=== PATIENT | female | born 1950 | race Two or more races ===

== ENCOUNTER 2019-11-11 20:42 | Emergency (ER) | payer SELFPAY ==
[~2019-11-11] VITALS: Ht 165.1 cm; Wt 76.7 kg
[2019-11-11] MEDS ORDERED: ASPIRIN 325 MG TAB PO ONE (21:30)
--- OUTSIDE RECORDS SUMMARY | 2019-11-11 22:32 | XMS REPORT | Continuity of Care Document ---
Author Author [facility] Address Unknown Phone Unavailable Care Team Providers Care [employer] Helper Name Role Phone [place] Information [email or web address] Unavailable Un available Problems Problem Status Onset Date Classification Date Reported Comments Source COLON SCREENING Active 06/01/2019 [facility] Medications No Data Provided for This Section Allergies, Adverse Reactions, Alerts No Known Medication Allergies Immunizations No Data Provided for This Section Results No Data Provided for This Section Pathology Reports No Data Provided for This Section Diagnostic Reports No Data Provided for This Section Consultation Notes No Data Provided for This Section Discharge Summaries No Data Provided for This Section History and Physicals No Data Provided for This Section Vital Signs No Data Provided for This Section Encounters Location Location Details Encounter Type Encounter Number Reason For Visit Attending Provider ADM Date DC Date Status Source [facility] Bedded Outpatient [id number] Dariel Menjivar 06/13/2019 06/13/2019 [facility] Procedures No Data Provided for This Section Assessment and Plan No Data Provided for This Section Plan of Care No Data Provided for This Section Social History Social History Date Source Social History TypeResponse 06/13/2019 [facility] Family History No Data Provided for This Section Advance Directives No Data Provided for This Section Functional Status No Data Provided for This Section
--- OUTSIDE RECORDS SUMMARY | 2019-11-11 22:32 | XMS REPORT | Clinical Summary ---
Author Author [facility] Organization [facility] Address Unknown Phone Unavailable Care Team Providers Care Rug Repairer Name Role Phone Patrice Renteria MD PCP Karen Norman RN 2 Unavailable Allergies Comments Active Allergy Reactions Severity Noted Date Had erythema at the site of the injection and a large urticaria at the anterior and medial bicep. Pneumococcal 23-Elise Ps Medium 01/19/2019 Vaccine Medications End Date Status Medication Sig Dispensed Refills Start Date Active aspirin (ASPIRIN) 81 mg Chew and 0 chewable tablet swallow 81 mg by mouth daily. Active levothyroxine (SYNTHROID) Take 1 tablet 90 tablet 3 75 mcg tabletIndications: by mouth 0 Acquired hypothyroidism daily. Active cloNIDine HCL (CATAPRES) Take 1 tablet 180 tablet 3 0.1 mg tabletIndications: by mouth 2 0 Benign essential HTN times daily. Active atorvastatin (LIPITOR) 20 Take 1 tablet 90 tablet 3 mg tabletIndications: by mouth at 0 Mixed hyperlipidemia bedtime nightly. Active amLODIPine (NORVASC) 5 mg Take 1 tablet 90 tablet 3 tabletIndications: Benign by mouth 0 essential HTN every morning. Active ketoconazole (NIZORAL) 2 Apply a small 30 g 0 % topical amount to red 0 creamIndications: areas under Intertrigo breast twice a day for one week.. Additional Information Patient not taking. Reported on 11/10/2019 2:08 PM Active polyethylene glycol Add lukewarm 4000 mL 0 07/12 (GOLYTELY) 236-22.74-6.74 drinking 0 -5.86 gram oral water to the solutionIndications: fill yenny (4 Abdominal pain, liters) and unspecified abdominal shake. Drink location as directed by your doctor.. Additional Information Patient not taking. Reported on 11/10/2019 2:08 PM Active LORazepam (ATIVAN) 0.5 mg Take 0.5 mg 0 tablet by mouth every 6 hours as needed for Anxiety (sleep) pt got RX from a private MD- no one in [facility] . Active hydroCHLOROthiazide Take 1 tablet 90 tablet 1 08/12 (HYDRODIURIL) 25 mg by mouth 0 tabletIndications: daily. Essential hypertension Active cetirizine (ZYRTEC) 10 mg Take 1 tablet 30 tablet 1 tabletIndications: by mouth 0 Shortness of breath daily. Active Comp by 1 Units 0 Stocking,Knee,Regular,Med Misc.(Non-Efraín 0 MiscIndications: g; Combo Localized swelling of Route) route. right lower extremity Active mometasone (NASONEX) 50 1 [place] by 17 g 1 mcg/actuation nasal each nostril 0 sprayIndications: route daily. Shortness of breath 02/11/2019 Discontinued (Reorder) levothyroxine (SYNTHROID) Take 1 tablet 90 tablet 2 75 mcg tabletIndications: by mouth 9 Acquired hypothyroidism daily. 11/23/2018 Discontinued (Other) cloNIDine HCl (CATAPRES) Take 1 tablet 180 tablet 2 0.1 mg tabletIndications: by mouth 2 9 Medication refill times daily. 01/18/2019 Discontinued amLODIPine (NORVASC) 5 mg Take 1 tablet 90 tablet 2 tabletIndications: by mouth 9 Medication refill every morning. 02/11/2019 Discontinued (Reorder) atorvastatin (LIPITOR) 10 Take 1 tablet 90 tablet 2 mg tabletIndications: by mouth at 9 Mixed hyperlipidemia bedtime nightly. 04/26/2019 Discontinued (Patient Discha rge) fluticasone propionate Use 2 Sprays 16 g 11 (FLONASE ALLERGY RELIEF) in each 9 50 mcg/actuation nasal nostril sprayIndications: daily. Dysfunction of both eustachian tubes 12/13/2018 famotidine (PEPCID) 40 mg Take 1 tablet 30 tablet 0 tabletIndications: by mouth 9 Epigastric abdominal pain daily for 30 days. 01/19/2019 Discontinued (Reorder) famotidine (PEPCID) 20 mg Take 1 tablet 90 tablet 1 tabletIndications: by mouth 2 9 Gastroesophageal reflux times daily disease, esophagitis as needed for presence not specified Heartburn. 01/19/2019 Discontinued (Reorder) amLODIPine (NORVASC) 10 Take 1 tablet 90 tablet 1 mg tabletIndications: by mouth 9 Medication refill, Benign every essential HTN morning. 04/26/2019 Discontinued (Patient Dischfarideh rgtoñito) cetirizine (ZYRTEC) 10 mg Take 1 tablet 30 tablet 3 tabletIndications: by mouth 9 Adverse effect of daily. vaccine, initial encounter 04/26/2019 Discontinued (Patient Dischfarideh herring) famotidine (PEPCID) 20 mg Take 1 tablet 90 tablet 1 tabletIndications: by mouth 2 9 Gastroesophageal reflux times daily disease, esophagitis as needed for presence not specified Heartburn. 04/26/2019 Discontinued (Reorder) amLODIPine (NORVASC) 10 Take 1 tablet 90 tablet 1 mg tabletIndications: by mouth 9 Medication refill, Benign every essential HTN morning. 07/04/2019 Discontinued (Reorder) levothyroxine (SYNTHROID) Take 1 tablet 90 tablet 2 75 mcg tabletIndications: by mouth 9 Acquired hypothyroidism daily. 04/26/2019 Discontinued atorvastatin (LIPITOR) 10 Take 1 tablet 90 tablet 2 mg tabletIndications: by mouth at 9 Mixed hyperlipidemia bedtime nightly. 09/09/2019 Discontinued (Therapy comple taylor) dexlansoprazole Take 1 60 capsule 3 (DEXILANT) 30 mg delayed capsule by 9 release mouth daily. capsuleIndications: Gastroesophageal reflux disease, esophagitis presence not specified 07/04/2019 Discontinued (Reorder) atorvastatin (LIPITOR) 20 Take 1 tablet 90 tablet 2 mg tabletIndications: by mouth at 0 Mixed hyperlipidemia bedtime nightly. 07/04/2019 Discontinued (Reorder) cloNIDine HCL (CATAPRES) Take 1 tablet 180 tablet 1 0.1 mg tabletIndications: by mouth 2 0 Benign essential HTN times daily. 07/04/2019 Discontinued (Reorder) amLODIPine (NORVASC) 5 mg Take 1 tablet 90 tablet 2 tabletIndications: Benign by mouth 0 essential HTN every morning. 05/16/2019 ciprofloxacin HCl (CIPRO) Take 1.5 30 tablet 0 500 mg tabletIndications: tablets by 0 Fever, unspecified fever mouth 2 times cause, Enterocolitis daily for 10 days. 05/16/2019 metroNIDAZOLE (FLAGYL) Take 1 tablet 20 tablet 0 0 500 mg tabletIndications: by mouth 2 0 Fever, unspecified fever times daily cause, Enterocolitis for 10 days. 05/11/2019 ondansetron (ZOFRAN) 4 mg Take 1 tablet 8 tablet 0 tabletIndications: by mouth 0 Epigastric abdominal pain every 8 hours as needed for up to 3 days for Nausea. Active Problems Problem Noted Date Epigastric abdominal pain 01/08/2018 Acute superficial gastritis without hemorrhage 01/08 Essential hypertension Hyperlipidemia Neck pain on left side Resolved Problems Problem Noted Date Resolved Date Other chest pain 01/22/2018 09/09/2019 Medication refill 01/22/2018 09/09/2019 Nonintractable headache 09/09/2019 Fever 09/09/2019 Encounters Care Team Description Date Type Specialty Chaz Villalobos ResidentMD Khan, Shamis, ResidentMD Shortness of breath (Primary Dx); Localized swelling of right lower extremity 11/10/2019 Office Visit Internal Medicine Augusta Whitley ResidentMD Shortness of breath 11/10/2019 Orders Only Internal Medicine Violeta Pisano MD Occult blood positive stool 11/09/2019 Orders Only Internal Medicine Lydia Hauser Anxiety disorder, unspecified type (Prim elaine Dx) 10/12/2019 Telephonic Psychology Encounter Patrice Renteria MD Encounter for screening mammogram for br east cancer 09/16/2019 Hospital Radiology Encounter Vernon Avalos ResidentMD Schmidt, Rosa M, MD Diab, Louis A, ResidentMD Benign essential HTN (Primary Dx) 09/16/2019 Office Visit Internal Medicine Matthew Montenegro ResidentMD Shah, Vandana G, MD Diab, Louis A, ResidentMD Essential hypertension (Primary Dx); Anxiety state; Episodic tension-type headache, not intractable; Encounter for screening mammogram for breast cancer; Hypothyroidism, unspecified type 09/09/2019 Office Visit Internal Medicine Anastacio Ferreira Resident[place] Anxiety state; Episodic tension-type headache, not intractable 09/09/2019 Orders Only Internal Medicine Nazia Solis, TRISTAN 08/25/2019 Nurse Triage Allen Pathak MD Abdominal pain, unspecified abdominal lo cation 07/27/2019 Orders Only Gastroenterology Allen Pathak MD Abdominal pain, unspecified abdominal lo cation (Primary Dx) 07/13/2019 Orders Only Gastroenterology Allen Pathak MD 07/13/2019 Pre-Clinic Gastroenterology Review Violeta Pisano MD Acquired hypothyroidism; Benign essential HTN; Mixed hyperlipidemia 07/04/2019 Refill Internal Medicine Violeta Pisano MD Occult blood positive stool (Primary Dx) 05/13/2019 Orders Only Internal Medicine Epigastric abdominal pain (P rimary Dx) 05/12/2019 Lab Appointment Lab Hawk Hwang MD Epigastric abdominal pain (Primary Dx); Acute superficial gastritis without hemorrhage 05/08/2019 Emergency Emergency Medicine Estefani Griggs, TRISTAN 05/08/2019 Nurse Triage Margarito Andre MD Fever, unspecified fever cause (Primary Dx); Enterocolitis 05/06/2019 Emergency Emergency Medicine Williams Colon MD Screening for osteoporosis 05/04/2019 Hospital Radiology Encounter Jennifer Guthrie, Fellow(MD) Vickie Lopez MD Screening for osteoporosis (Primary Dx); Mixed hyperlipidemia; Need for influenza vaccination; Benign essential HTN; Screening for colon cancer; Need for shingles vaccine; Encounter for screening mammogram for breast cancer 04/26/2019 Office Visit Internal Medicine Allen Pathak MD Tan, Mimi C, MD 04/18/2019 Hospital Encounter Allen Pathak MD Gastroesophageal reflux disease, esophag itis presence not specified; Dyspepsia 04/13/2019 Orders Only Gastroenterology Allen Pathak MD Shukla, Richa, MD Gastroesophageal reflux disease, esophag itis presence not specified (Primary Dx); Dyspepsia 03/30/2019 Office Visit Gastroenterology Patrice Renteria MD Hernandez, Edgar David 02/16/2019 Hospital Cardiology Encounter Patrice Renteria MD Acquired hypothyroidism; Mixed hyperlipidemia 02/11/2019 Refill Family Practice Williams Colon MD Adverse effect of vaccine, initial encou nter (Primary Dx); Gastroesophageal reflux disease, esophagitis presence not specified; Medication refill; Benign essential HTN 01/19/2019 Orders Only Internal Medicine Jennifer Guthrie, Fellow(MD) Celine Cyr MD Schmidt, Rosa M, MD Benign essential HTN (Primary Dx); Medication refill; Need for 23-polyvalent pneumococcal polysaccharide vaccine; Gastroesophageal reflux disease, esophagitis presence not specified; Special screening for osteoporosis; Breast cancer screening; Need for shingles vaccine 01/18/2019 Office Visit Internal Medicine Jennifer Guthrie, Fellow(MD) Celine Cyr MD Essential hypertension (Primary Dx); Epigastric abdominal pain; Other chest pain; Thrombocytopenia, unspecified; Bradycardia 11/23/2018 Office Visit Internal Medicine Naomi Mcmillan MD Epigastric abdominal pain (Primary Dx); Acute superficial gastritis without hemorrhage 11/13/2018 Emergency Emergency Medicine after 11/10/2018 Immunizations Name Administration Dates Next Due Influenza, Injectable, 04/26/2019 Quadrivalent, Preservative Free Influenza, 02/19/2018, 01/25/2018 (Def erred: Patient Refused) Vaccine<FLUCELVAX>(Multi- Dose) PCV 13 (Pnuemococcal 02/19/2018 (Deferred: Patie nt already had this Conjugated 13 Valent) immunization), 12/31/2015 PNEUMOCOCCAL 23-VALPS 01/18/2019 VACCINE 25 MCG/0.5 ML INJECTION PPD 12/31/2015 Tdap (Tetanus Toxoid, 12/31/2015 Reduced Diphtheria Toxoid And Acellular Pertussis, Absorbed) Varicella 12/31/2015 Zoster Vaccine (Shingrix) 04/26/2019 Social History Date Tobacco Use Types Packs/Day Years Used Never Smoker Smokeless Tobacco: Never Used Tobacco Cessation: Counseling Given: No Drinks/Week oz/Week Comments Alcohol Use No Food Insecurity Answer Date Recorded Within the past 12 months, you worried that your Never josue e 01/25/2018 food would run out before you got money to buy more. Within the past 12 months, the food you bought Never true 01/25/2018 just didn't last and you didn't have mo abigail to get more. Sex Assigned at Date Recorded Not on file Industry Job Start Date Occupation Not on file Not on file Not on file Travel End Travel History Travel Start No recent travel history available. Date Recorded COVID-19 Exposure Response 11/10/2019 1:29 PM CDT In the last month, have you been in contact with No / Unsure someone who was confirmed or suspected to have Coronavirus / COVID-19? Last Filed Vital Signs Reading Time Taken Comments Vital Sign 126/63 11/10/2019 1:43 PM CDT Blood Pressure 63 11/10/2019 1:43 PM CDT Pulse 37 C (98.6 F) 11/10/2019 1:43 PM CDT Temperature 18 11/10/2019 1:43 PM CDT Respiratory Rate 95% 05/08/2019 6:30 PM CHROME CLEANER Oxygen Saturation - - Inhaled Oxygen Concentration 76.8 kg (169 lb 4.8 oz) 11/10/2019 1:43 PM CDT Weight 165.1 cm (5' 5") 11/10/2019 1:43 PM CDT Height 28.17 11/10/2019 1:43 PM CDT Body Mass Index Plan of Treatment Care Team Description Date Type Specialty Ruben Cox, ResidentMD [address] [place] [address] Shania Whitney MD [address] [place] [address] 12/08/2019 Office Visit Internal Medicine Health Maintenance Due Date Last Done Comments Breast Cancer Scrn 02/12/2019 02/12/2018 (Yearly) IMM Influenza Seasonal 01/12/2020 04/26/2019, Jan to June (>/= 19 yrs) 02/19/2018 Colonoscopy 3yr 06/12/2022 06/13/2019 (Previously completed - External) Procedures Comments Procedure Name Priority Date/Time Associated Diag nosis [facility] EKG PROC 12 LEAD Routine 11/10/2019 Shortnes s of breath EKG; TRACING ONLY 2:01 PM CDT FREE T4 Routine 09/16/2019 Hypothyroidism, 8:59 AM CDT unspecified type THYROID STIMULATING Routine 09/16/2019 Hypothyroi dism, HORMONE (TSH) 8:59 AM CDT unspecified type BASIC METABOLIC PANEL Routine 09/16/2019 Essentia l hypertension 8:59 AM CDT FECAL OCCULT BLOOD Routine 05/12/2019 Epigastric abdominal pain 11:23 AM CHROME CLEANER ECHG EKG PROC 12 LEAD Routine 05/08/2019 EKG; TRACING ONLY 4:41 PM CHROME CLEANER TROPONIN I POC Routine 05/08/2019 4:38 PM CHROME CLEANER URINALYSIS STAT 05/08/2019 2:23 PM CHROME CLEANER URINALYSIS STAT 05/08/2019 2:23 PM CHROME CLEANER BMP POC Routine 05/08/2019 1:49 PM CHROME CLEANER FREE T4 Add-on 05/08/2019 1:47 PM CHROME CLEANER THYROID STIMULATING Add-on 05/08/2019 HORMONE (TSH) 1:47 PM CHROME CLEANER CBC STAT 05/08/2019 1:47 PM CHROME CLEANER LIPASE STAT 05/08/2019 1:47 PM CHROME CLEANER LIVER PROFILE STAT 05/08/2019 1:47 PM CHROME CLEANER CBC/DIFF STAT 05/08/2019 1:[address] ABDOMEN AND PELVIS STAT 05/06/2019 Fever, u nspecified fever CONTRAST 6:49 AM CHROME CLEANER cause XRAY CHEST 2 VIEWS STAT 05/06/2019 Fever, unsp ecified fever 6:25 AM CHROME CLEANER cause URINALYSIS STAT 05/06/2019 4:48 AM CHROME CLEANER URINALYSIS STAT 05/06/2019 4:48 AM CHROME CLEANER INFLUENZA DNA/RNA AMP STAT 05/06/2019 PROBE, FLURSV 3:37 AM CHROME CLEANER BMP POC Routine 05/05/2019 9:06 PM CHROME CLEANER CBC STAT 05/05/2019 8:59 PM CHROME CLEANER CBC/DIFF STAT 05/05/2019 8:59 PM CHROME CLEANER BONE DENSITY (DEXA) Routine 05/04/2019 Screening for 1:43 PM CHROME CLEANER osteoporosis HEMOCCULT KIT FOR Routine 04/26/2019 Screening fo r colon SPECIMEN COLLECTION AT 3:28 PM CHROME CLEANER cancer HOME [facility] GI PROC EGD Routine 04/18/2019 Gastroesophag eal reflux DIAGNOSTIC BRUSH WASH 2:50 PM CHROME CLEANER disease, esopha gitis presence not specified Dyspepsia TRANSTHORACIC ECHO (TTE) Routine 02/16/2019 Jeff cardia 2:05 PM CHROME CLEANER H. PYLORI STOOL AG Routine 11/24/2018 Epigastric abdominal pain 10:53 AM CDT CBC Routine 11/23/2018 Thrombocytopeni a, 3:13 PM CDT unspecified FREE T4 Routine 11/23/2018 Bradycardia 3:13 PM CDT THYROID STIMULATING Routine 11/23/2018 Bradycardi a HORMONE (TSH) 3:13 PM CDT HEPATITIS PANEL Routine 11/23/2018 Thrombocytopen ia, 3:13 PM CDT unspecified CBC/DIFF Routine 11/23/2018 Thrombocytopeni a, 3:13 PM CDT unspecified FOLIC ACID Routine 11/23/2018 Thrombocytopeni a, 3:13 PM CDT unspecified VITAMIN B12 Routine 11/23/2018 Thrombocytopeni a, 3:13 PM CDT unspecified FERRITIN Routine 11/23/2018 Thrombocytopeni a, 3:13 PM CDT unspecified IRON PROFILE Routine 11/23/2018 Thrombocytopeni a, 3:13 PM CDT unspecified 12 LEAD EKG Routine 11/13/2018 11:01 AM CDT LIVER PROFILE STAT 11/13/2018 10:47 AM CDT LIPASE STAT 11/13/2018 10:47 AM CDT PT/INR STAT 11/13/2018 10:47 AM CDT BASIC METABOLIC PANEL STAT 11/13/2018 10:47 AM CDT CBC (WITHOUT STAT 11/13/2018 DIFFERENTIAL) 10:47 AM CDT after 11/10/2018 Results * 12 LEAD EKG (11/10/2019 2:01 PM CDT) 12 LEAD EKG FOR LENIN Vaughn tanya Test Date: 2019-11-10 Pat Name: BERNICE STARR Department: [facility] Room: Gender: F Shale Processing Technician: Pedro Luis : 1950 Requested By: SHANIA Mccall Order Number: [id number] Reading MD: Morgan Butterfield Measurements Intervals [place] Rate: 62 P: 59 OR: 152 QRS: -13 QRSD: 82 T: -35 QT: 408 QTc: 414 Interpretive Statements Normal sinus rhythm ST & T wave abnormality, consider anterolateral ischemia Electronically Signed On 11-10-2019 15:12:09 CDT by Morgan Butterfield Specimen Performing Organization Address City/[facility] Ph one Number [facility] * TSH (09/16/2019 8:59 AM CDT) Only the most recent of 3 results within the time period is included. TSH 2.71 0.45 - 5.33 uIU/mL [facility] Comment: LABORATORY If , please see the following reference ranges (not verified by lab): 1st Trimester: 0.05 -3.70 uIU/mL 2nd Trimester: 0.31 -4.35 uIU/mL 3rd Trimester: 0.41 - 5.18 uIU/mL Specimen Blood - Arm, left Performing Organization Address [facility] Ph one Number [facility] [address] [place] [address] * Free T4 (09/16/2019 8:59 AM CDT) Only the most recent of 3 results within the time period is included. Pathologist [facility] Free T4 0.89 0.64 - 1.42 ng/dl [facility] Specimen Blood - Arm, left Performing Organization Address [facility] one Number [facility] [address] [place], [place] [id number] [phone] * Basic Metabolic Panel (09/16/2019 8:59 AM CDT) Only the most recent of 2 results within the time period is included. [facility] Sodium 143 136 - 145 mmol/L [facility] Potassium 4.5 3.5 - 5.1 mmol/L [facility] Chloride 107 98 - 107 mmol/L [facility] CO2 27 21 - 31 mmol/L [facility] Urea Nitrogen 14.0 7.0 - 25.0 mg/dL [facility] Creatinine 0.9 0.6 - 1.2 mg/dL [facility] Glucose 115 (H) 70 - 110 mg/dL [facility] Calcium 9.3 8.6 - 10.3 mg/dL [facility] GFR, Estimated 62 (L) >=90 mL/min/1.73 m2 [facility] Anion Gap 9 5 - 16 mmol/L [facility] Specimen Blood - Arm, left Performing Organization Address [facility] one Number [facility] [place] [address] [facility] [address] [place] [address] * Fecal Occult Blood (05/12/2019 11:23 AM CHROME CLEANER) [facility] Occult Blood Positive (A) Negative [facility] Specimen Stool - Feces Performing Organization Address [facility] one Number [facility] [address] [place] [address] [facility] * 12 LEAD EKG (05/08/2019 4:41 PM CHROME CLEANER) Pathologist [facility] 12 LEAD EKG FOR [facility] Test Date: 2019-05-08 Pat Name: BERNICE DESAILONG Department: [id number] Room: Gender: F Shale Processing Technician: [id number] : 1950 Requested By: HAWK Martines Order Number: [id number] Reading MD: Romulo Sheikh M.D. Measurements Intervals [place] Rate: 63 P: 49 OR: 158 QRS: -33 QRSD: 85 T: 31 QT: 407 QTc: 419 Interpretive Statements SINUS RHYTHM WITH OCCASIONAL SUPRAVENTRICULAR PREMATURE COMPLEXES INDETERMINATE AXIS POSSIBLE RIGHT VENTRICULAR CONDUCTION DELAY [RSR (QR) IN V1/V2] MINIMAL VOLTAGE CRITERIA FOR LVH, CONSIDER NORMAL VARIANT [MEETS CRITERIA IN ONE OF: R(aVL), S(V1), R(V5), R(V5/V6)+S(V1)] POSSIBLE ANTERIOR MYOCARDIAL INFARCTION [30 ms Q WAVE IN V3/V4, OR R < 0.2 mV IN V4], PROBABLY OLD Reviewed by Electronically Signed On 05-08-2019 17:06:58 CHROME CLEANER by Romulo Sheikh M.D. Specimen Performing Organization Address [facility] one Number SMS * POCT TROPONIN I POC docked device (05/08/2019 4:38 PM CHROME CLEANER) Pathologist [facility] Troponin POC 0.00Comment: 017 0.00 - 0.08 ng/mL [facility] Specimen Blood, venous Performing Organization Address [facility] one Number [facility] [address] [place] [address] * Urinalysis (05/08/2019 2:23 PM CHROME CLEANER) Only the most recent of 2 results within the time period is included. Color Yellow Colorless, Straw, [facility] Clarity Clear Clear [facility] Spec [place], 1.024 1.001 - 1.035 [facility] pH, Ur 6.0 5.0 - 8.0 [facility] Protein, Ur Negative Negative mg/dL [facility] Glucose, Ur Negative Negative mg/dL [facility] Ketone, Ur Negative Negative mg/dL [facility] Bilirubin, Ur Negative Negative mg/dL [facility] Nitrite, Ur Negative Negative [facility] Leukocyte trace (A) Negative mg/dL [facility] Blood, Ur 1+ (A) Negative mg/dL [facility] RBC 10 (H) 0 - 4 /HPF [facility] WBC 1 0 - 5 /HPF [facility] Epithelial Cell 1 <=1 /HPF [facility] Mucous Present (A) None seen /HPF [facility] Urobilinogen, <1.0 <1.0 EU/dL [facility] Specimen Urine Performing Organization Address [facility] one Number [facility] [address] [place] [address] [phone] * POCT BMP POC docked device (05/08/2019 1:49 PM CHROME CLEANER) Only the most recent of 2 results within the time period is included. Sodium POC 142 136 - 145 mmol/L [facility] Potassium POC 3.6 3.5 - 5.1 mmol/L [facility] Chloride POC 106 98 - 107 mmol/L [facility] TCO2 POC 22 21 - 32 mmol/L [facility] Urea Nitrogen 10 7 - 18 mg/dL [facility] Creatinine POC 1.1 0.6 - 1.3 mg/dL [facility] Glucose POC 109 (H) 74 - 106 mg/dL [facility] Ionized Calcium 1.17 1.15 - 1.29 mmol/L [facility] GFR, Estimated 51 (L) >=90 mL/min/1.73 m2 [facility] Hemoglobin POC 14.6Comment: Physician 12 - 16 g/dL [facility] Hematocrit POC 43.0 37.0 - 47.0 % [facility] Specimen Blood, venous Performing Organization Address [facility] one Number [facility] [address] [place] [address] * CBC/Diff (05/08/2019 1:47 PM CHROME CLEANER) Only the most recent of 3 results within the time period is included. WBC 3.4 (L) 4.5 - 11.0 K/uL [facility] RBC 4.59 4.20 - 5.40 M/uL [facility] Hemoglobin 13.3 12.0 - 16.0 g/dL [facility] Hematocrit 40.5 37.0 - 47.0 % [facility] MCV 88.2 82.0 - 92.0 fL [facility] MCH 29.0 27.0 - 32.0 pg [facility] MCHC 32.8 32.0 - 36.0 g/dL [facility] RDW 40.5 36.4 - 46.3 fL [facility] Platelet 126 (L) 150 - 400 K/uL [facility] Mean Platelet 11.1 9.4 - 12.4 fL [facility] Volume [facility] Percent NRBC 0.0 % [facility] Neutrophil 68.7 34.0 - 70.0 % [facility] Lymphs 19.2 (L) 20.0 - 50.0 % [facility] Monocytes 10.0 5.0 - 12.0 % [facility] Eos 1.2 0.7 - 5.0 % [facility] Basos 0.6 0.1 - 1.2 % [facility] Immature 0.3 0.0 - 0.5 % [facility] Granulocytes LABORATORY Neutrophils 2.33 1.56 - 6.13 K/uL [facility] Lymphs 0.65 (L) 1.18 - 3.74 K/uL [facility] Monocytes(Absol 0.34 0.24 - 0.36 K/uL [facility] Eos (Absolute) 0.04 0.04 - 0.36 K/uL [facility] Baso (Absolute) 0.02 0.01 - 0.08 K/uL [facility] Immature Grans 0.01 0.00 - 0.03 K/uL [facility] Absolute NRBC 0.00 K/uL [facility] Specimen Blood Performing Organization Address City/State/Zipcode Ph one Number [facility] [address] [place] [address] * Liver Profile (05/08/2019 1:47 PM CHROME CLEANER) Only the most recent of 2 results within the time period is included. Total Protein 6.5 6.0 - 8.3 g/dL [facility] Bilirubin, 0.4 0.2 - 1.2 mg/dL [facility] Total [facility] Alkaline 50 34 - 104 U/L [facility] Phosphatase [facility] AST 17 13 - 39 U/L [facility] Direct 0.1 0.0 - 0.2 mg/dL [facility] Bilirubin [facility] ALT 14 7 - 52 U/L [facility] Albumin 4.1 3.7 - 5.3 g/dL [facility] Specimen Blood Performing Organization Address [facility] one Number [facility] [address] [place] [address] * Lipase (05/08/2019 1:47 PM CHROME CLEANER) Only the most recent of 2 results within the time period is included. Lipase 27 11 - 82 U/L [facility] Specimen Blood Performing Organization Address [facility] one Number [facility] [address] [place] [address] [phone] * CT ABDOMEN AND PELVIS CONTRAST (05/06/2019 6:49 AM CHROME CLEANER) Specimen Impressions Performed At IMPRESSION: SMS 1. Findings compatible with enterocol itis. Liquid stool in the colon as seen with diarrhea. 2. Mild cardiomegaly and calcific aor tic valve disease. 3. Hepatomegaly with diffuse steatosi s. No focal hepatic lesion. If the report is "FINALIZED" it indicat es that the attending/staff radiologist has reviewed the images and agrees with the resident's interpretation. Dictated By: Jose Martin Kemp MD, 0 8:26 AM I have reviewed the study and agree wit h the findings in this report. Signed By: Jose M Johnson DO, 05/06/2019 8:36 AM Narrative Performed At EXAM: CT Abdomen and Pelvis WITH contrast SMS INDICATION: Abd pain, acute, generalize d, with fever ADDITIONAL INFORMATION PER EPIC: 68 y ro woman with HTN, GERD, HLD, comes in for one day of fevers and PIRES. she then begun to have fever and measured her temperature, it was 101. S he also complains of stomach pain, epigastrium and lower quadrants. COMPARISON: Abdominal CT 12/31/2017 TECHNIQUE: Abdomen and pelvis were scan nikky utilizing a multidetector helical scanner from the lung base to t he pubic symphysis after administration of IV contrast. Coronal and sagittal reformations were obtained. Routine protocol was performe d. Scan was performed when during portal venous phase. IV CONTRAST: 100 mL of Omnipaque 300 ORAL CONTRAST: None COMPLICATIONS: None RADIATION DOSE: Total DLP: 692 mGy*cm Estimated effective dose: (DLP x 0.015 x size factor) mSv CTDIvol has been reviewed. It is below the limits set by the Radiation Protocol Committee (RPC). FINDINGS: Suboptimal exam due to patient motion a rtifact. LINES and TUBES: None. LOWER THORAX: There is bibasilar atel ectasis. Myocardium. Calcifications of the aortic valve. HEPATOBILIARY: Enlarged liver that lacey ures up to 18 cm. A 6 mm hypodensity within hepatic segment i s unchanged from prior exam and is too small to characterize (series 2/ 42) but statistically most likely represent a simple cyst. The small hypo density seen in hepatic segment III on prior exam, is not well visualiz ed on this exam. No biliary ductal dilation. GALLBLADDER: No radio-opaque stones or sludge. No wall thickening. SPLEEN: No splenomegaly. PANCREAS: No focal masses or ductal dil atation. ADRENALS: No adrenal nodules KIDNEYS/URETERS: Kidneys enhance symmet rically. No hydronephrosis. Stable 1.6 cm right renal superior pole exophytic simple cyst No stones. GI TRACT: Mild mural hyperenhancement o f multiple small bowel loops, best seen on coronal image 30. Numerous fluid-filled loops of nondilated small bowel. Liquid stool throughout th e colon. No focal wall thickening or findings to suggest bowel obstruction. Appendix is normal. PELVIC ORGANS/BLADDER: Unremarkable ajay dder and uterus. LYMPH NODES: No lymphadenopathy. VESSELS: There is mild atherosclerotic disease in the aorta and major arterial branches. PERITONEUM / RETROPERITONEUM: Small merrill unt of free fluid within the abdomen/pelvis. No free air. BONES: Mild multilevel degenerative dis c changes throughout the thoracic and lumbar spine. SOFT TISSUES: Stable 2.1 cm round left T11 paraspinal density is likely a benign nerve sheath tumor or perineur al cyst. Procedure Note Interface, Rad/Mammog In - 05/06/2019 8:41 AM CHROME CLEANER EXAM: CT Abdomen and Pelvis WITH contrast INDICATION: Abd pain, acute, generalized, with fever ADDITIONAL INFORMATION PER EPIC: 68 yro woman with HTN, GERD, HLD, comes in for one day of fevers and PIRES. she then begun to have fever and measured her temperature, it was 101. She also complains of stomach pain, epigastrium and lower quadrants. COMPARISON: Abdominal CT 12/31/2017 TECHNIQUE: Abdomen and pelvis were scanned utilizing a multidetector helical scanner from the lung base to the pubic symphysis after administration of IV contrast. Coronal and sagittal reformations were obtained. Routine protocol was performed. Scan was performed when during portal venous phase. IV CONTRAST: 100 mL of Omnipaque 300 ORAL CONTRAST: None COMPLICATIONS: None RADIATION DOSE: Total DLP: 692 mGy*cm Estimated effective dose: (DLP x 0.015 x size factor) mSv CTDIvol has been reviewed. It is below the limits set by the Radiation Protocol Committee (RPC). FINDINGS: Suboptimal exam due to patient motion artifact. LINES and TUBES: None. LOWER THORAX: There is bibasilar atelectasis. Myocardium. Calcifications of the aortic valve. HEPATOBILIARY: Enlarged liver that measures up to 18 cm. A 6 mm hypodensity within hepatic segment is unchanged from prior exam and is too small to characterize (series 2/42) but statistically most likely represent a simple cyst. The small hypodensity seen in hepatic segment III on prior exam, is not well visualized on this exam. No biliary ductal dilation. GALLBLADDER: No radio-opaque stones or sludge. No wall thickening. SPLEEN: No splenomegaly. PANCREAS: No focal masses or ductal dilatation. ADRENALS: No adrenal nodules KIDNEYS/URETERS: Kidneys enhance symmetrically. No hydronephrosis. Stable 1.6 cm right renal superior pole exophytic simple cyst No stones. GI TRACT: Mild mural hyperenhancement of multiple small bowel loops, best seen on coronal image 30. Numerous fluid-filled loops of nondilated small bowel. Liquid stool throughout the colon. No focal wall thickening or findings to suggest bowel obstruction. Appendix is normal. PELVIC ORGANS/BLADDER: Unremarkable bladder and uterus. LYMPH NODES: No lymphadenopathy. VESSELS: There is mild atherosclerotic disease in the aorta and major arterial branches. PERITONEUM / RETROPERITONEUM: Small amount of free fluid within the abdomen/pelvis. No free air. BONES: Mild multilevel degenerative disc changes throughout the thoracic and lumbar spine. SOFT TISSUES: Stable 2.1 cm round left T11 paraspinal density is likely a benign nerve sheath tumor or perineural cyst. IMPRESSION IMPRESSION: 1. Findings compatible with enterocolit is. Liquid stool in the colon as seen with diarrhea. 2. Mild cardiomegaly and calcific aorti c valve disease. 3. Hepatomegaly with diffuse steatosis. No focal hepatic lesion. If the report is "FINALIZED" it indicates that the attending/staff radiologist has reviewed the images and agrees with the resident's interpretation. Dictated By: Jose Martin Kemp MD, 05/06/2019 8:26 AM I have reviewed the study and agree with the findings in this report. Signed By: Jose M Johnson DO, 05/06/2019 8:36 AM Performing Organization Address City/State/Zipcode Ph one Number SMS * XRAY CHEST 2 VIEWS (05/06/2019 6:25 AM CHROME CLEANER) Specimen Impressions Performed At IMPRESSION: SMS Bibasilar atelectasis. If the report is "FINALIZED" it indicat es that the attending/staff radiologist has reviewed the images and agrees with the resident's interpretation. Dictated By: Wilder Larose MD, 05/06/2019 6 :35 AM I have reviewed the study and agree wit h the findings in this report. Signed By: Jose M Johnson DO, 05/06/2019 8:03 AM Narrative Performed At EXAMINATION: XRAY CHEST 2 VIEWS SMS INDICATION: fever, weakness COMPARISON: Abdominal CT 05/06/2019 FINDINGS: TUBES and LINES: None. LUNGS: Bibasilar atelectasis. Nor mal lung volumes. PLEURA: No pleural effusion or pneumo thorax. HEART AND MEDIASTINUM: The cardiomedi astinal silhouette is unremarkable. BONES AND SOFT TISSUES: No acute osse ous lesion. Soft tissues are unremarkable. UPPER ABDOMEN: No free air under the di aphragm. Procedure Note Interface, Rad/Mammog In - 05/06/2019 8:08 AM CHROME CLEANER EXAMINATION: XRAY CHEST 2 VIEWS INDICATION: fever, weakness COMPARISON: Abdominal CT 05/06/2019 FINDINGS: TUBES and LINES: None. LUNGS: Bibasilar atelectasis. Normal lung volumes. PLEURA: No pleural effusion or pneumothorax. HEART AND MEDIASTINUM: The cardiomediastinal silhouette is unremarkable. BONES AND SOFT TISSUES: No acute osseous lesion. Soft tissues are unremarkable. UPPER ABDOMEN: No free air under the diaphragm. IMPRESSION IMPRESSION: Bibasilar atelectasis. If the report is "FINALIZED" it indicates that the attending/staff radiologist has reviewed the images and agrees with the resident's interpretation. Dictated By: Wilder Larose MD, 05/06/2019 6:35 AM I have reviewed the study and agree with the findings in this report. Signed By: Jose M Johnson DO, 05/06/2019 8:03 AM Performing Organization Address [facility] one Number SMS * Influenza A/B and RSV PCR (05/06/2019 3:37 AM CHROME CLEANER) Influenza A Not detected Not detected [facility] Influenza B Not detected Not detected [facility] RSV Not detected Not detected [facility] Specimen Nasal/Nasopharyngeal Swab - Nasopharynx Narrative Performed At This test utilizes FDA cleared Jan co bas Influenza A/B & RSV real-time RT-PCR [facility] assay for qualitative detection and dis crimination of Influenza A virus, Influenza B virus and Respiratory Syncy tial virus (RSV). Additional testing is required to differentiate any specific Influenza A subtypes or strains or specific RSV subgroups. Performing Organization Address [facility] one Number [facility] [address] [place] [address] * BONE DENSITY (DEXA) (05/04/2019 1:43 PM CHROME CLEANER) Specimen Impressions Performed At IMPRESSION: [facility] Bone mineralization by WHO Classificati on is osteopenia, the fracture risk is increased. Dictated By: Pro Junior MD, 2019 2:27 PM I have reviewed the study and agree wit h the findings in this report. Signed By: Andrew Fan MD, 05/04/2019 2: 49 PM Narrative Performed At EXAM: BONE DENSITY (DEXA) [facility] History: age > 65, Thursday appointment preference Comparison: None available DISCUSSION: Evaluation of the left hip and lumbar s pine was performed utilizing DEXA Hologic bone densitometer. The study is technically adequate. The patient's fracture risk is compared to an age-matched control. The patient denies prior surgery/fractu re of the spine, hips or forearm. Left hip femoral neck bone mineral dens ity: 0.885 g/cm2, T-score is 0.3, Z-score is 2.1. Left hip total bone mineral density: 1. 038 g/cm2, T-score is 0.8, Z-score is 2.3. Lumbar spine total bone mineral density : 0.887 gm/cm2, T-score is -1.5, Z-score is 0.7. The 10-year risk of major osteoporotic fracture is 6.8% and hip fracture is 0.3% per FRAX risk assessment. Procedure Note Interface, Rad/Mammog In - 05/04/2019 2:54 PM CHROME CLEANER EXAM: BONE DENSITY (DEXA) History: age > 65, Thursday appointment preference Comparison: None available DISCUSSION: Evaluation of the left hip and lumbar spine was performed utilizing DEXA Hologic bone densitometer. The study is technically adequate. The patient's fracture risk is compared to an age-matched control. The patient denies prior surgery/fracture of the spine, hips or forearm. Left hip femoral neck bone mineral density: 0.885 g/cm2, T-score is 0.3, Z-score is 2.1. Left hip total bone mineral density: 1.038 g/cm2, T-score is 0.8, Z-score is 2.3. Lumbar spine total bone mineral density: 0.887 gm/cm2, T-score is -1.5, Z-score is 0.7. The 10-year risk of major osteoporotic fracture is 6.8% and hip fracture is 0.3% per FRAX risk assessment. IMPRESSION IMPRESSION: Bone mineralization by WHO Classification is osteopenia, the fracture risk is increased. Dictated By: Pro Junior MD, 05/04/2019 2:27 PM I have reviewed the study and agree with the findings in this report. Signed By: Andrew Fan MD, 05/04/2019 2:49 PM Performing Organization Address City/State/Zipcode Ph one Number SMS * EGD (04/18/2019 2:50 PM CHROME CLEANER) TEXT Patient Name BERNICE STARR [facility] Date of 1950 Record Number [id number] Date/Time of Procedure 04/18/2019, 2:50:00 PM Endoscopist Marylu Gaines MD./Fellow Scar [place] INDICATIONS FOR EXAMINATION: Dyspepsia. PROCEDURE PERFORMED: EGD - EGD, diagnostic EGD - MODERATE SEDATION SAME PHYS/QHP 5/>YRS INSTRUMENTS: [id number] LIMITATIONS: None TOLERANCE: Good VISUALIZATION: Good MEDICATIONS: Fentanyl 75 mcg IVP, Versed 3 mg IVP ASA CLASSIFICATION: II ANALGESIA: Moderate Sedation PROCEDURE TECHNIQUE: Prior to the procedure, a History and Physical was performed, and patient medications and allergies were reviewed. The risks and benefits of the procedure and the sedation options and risks were discussed with the patient. Consent was obtained. Pulse, blood oxygen saturation, and blood pressure were monitored throughout the procedure. After adequate sedation, the endoscope was introduced through the mouth and under direct visualization advanced to the second portion of duodenum. Careful examination of the esophagus, stomach and duodenum was performed. FINDINGS: The upper, middle, and lower esophagus appeared normal. The GE junction was normal. The gastric cardia, fundus, body, and antrum were normal. The pylorus, duodenal bulb, and descending duodenum through the second portion of the duodenum appeared normal. SPECIMEN COLLECTED: No ENDOSCOPIC DIAGNOSIS: Normal EGD exam. RECOMMENDATIONS: Follow-up with PCP and in GI clinic. Continue daily PPI to complete 8-10 week course, then consider tapering off if no change in symptoms and consider treatment of functional component of dyspepsia. COMPLICATIONS: None. None ESTIMATED BLOOD LOSS: None BLOOD PRODUCTS ADMINISTERED: None GRAFT/IMPLANT: None TOTAL PROCEDURE TIME: TOTAL SEDATION TIME: COMMENTS: CPT CODE: [id number] Esophagogastroduodenoscopy, flexible, transoral; diagnostic, including collection of specimen(s[place] [id number] MODERATE SEDATION SAME PHYS/QHP 5/>YRS ICD CODE: K30 Functional dyspepsia I was present during the entire viewing portion of the procedure. I personally reviewed the images and report prepared by the resident or fellow and agree with the findings. After the procedure was completed, the patient was taken to the recovery in good condition. This Procedure was electronically signed of on : 04/20/2019 2:41:40 PM By Marylu Sanderson Specimen Performing Organization Address City/State/Zipcode Ph one Number SMS * TRANSTHORACIC ECHO (TTE) (02/16/2019 2:05 PM CHROME CLEANER) TRANSTHORACIC Transthoracic SMS ECHO (TTE) Echo Report BERNICE STARR Age: 68 Gender: F : 1950 Exam Date: 02/16/2019 14:05 Exam Location: [facility] Echo Ordering Phys: CELINE CYR Referring Phys: PATRICE RENTERIA Reading Phys: Jazmine Felder MD Fellow Phys: Fellow Phys: Animal Nutrition Consultant: Aaron Finn Reason For Exam: Indications: Bradycardia, Cardiac dysrhythmias ICD-9 Codes: I47.1 Exam Type: TRANSTHORACIC ECHO (TTE) Procedure CPT: 42781 Addtional CPT: Ht (in): 65 BSA: 1.83 HR: 62 Rhythm: Sinus rhythm Wt (lb): 159 BP: 140 / 72 Technical Quality: History: MEASUREMENTS Normal ranges based on 95% confidence intervals for adults, some normal patients may fall outside of this range especially when indexing for BSA 2D ECHO LV Diastolic Diameter PLAX 4.6 cm 4.2-5.8 (M) / 3.8-5.2 (F) LV Systolic Diameter PLAX 3 cm 2.5-4.0 (M) / 2.2-3.5 (F) LV Fractional Shortening PLAX 34.7 % IVS Diastolic Thickness 0.81 cm 0.6-1.0 (M) / 0.6-0.9 (F) LVPW Diastolic Thickness 0.72 cm 0.6-1.0 (M) / 0.6-0.9 (F) LV Relative Wall Thickness 0.33 <= 0.42 LVOT Diameter 2 cm Aortic Root Diameter 3.3 cm LA Volume 55 cm LA Volume Index 30 cm/m 16 - 34 cm/m LV Mass by linear method 111 g LV Mass by linear method Index 60.5 g/m DOPPLER AV Peak Velocity 164 cm/s AV Peak Gradient 10.8 mmHg AV Mean Velocity 110 cm/s AV Mean Gradient 5.5 mmHg AV Velocity Time Integral 37.3 cm LVOT Peak Velocity 119 cm/s LVOT Peak Gradient 5.7 mmHg LVOT Mean Velocity 72 cm/s LVOT Mean Gradient 2.4 mmHg LVOT Velocity Time Integral 24.9 cm LVOT Stroke Volume 77.2 cm LVOT Cardiac Output 4.7 liters/min AV Area Cont Eq vti 2.1 cm AV Area Cont Eq pk 2.2 cm Mitral E Point Velocity 83 cm/s Mitral A Point Velocity 114 cm/s Mitral E to A Ratio 0.73 TR Peak Velocity 229 cm/s TR Peak Gradient 21 mmHg LV E' Lateral Velocity 7.4 cm/s Mitral E to LV E' Lateral Ratio 11.2 LV E' Septal Velocity 7.4 cm/s Mitral E to LV E' Septal Ratio 11.2 FINDINGS Left Ventricle Normal left ventricular size. Normal left ventricular wall thickness. Normal left ventricular systolic function. Left ventricular ejection fraction is 60- 64%. There are no regional wall motion abnormalities noted. Impaired LV relaxation, normal LV filling pressures. Right Ventricle Normal right ventricular size and systolic function. Right Atrium Normal right atrial size. Left Atrium Normal left atrial size. IAS Mitral Valve Mitral leaflets mildly thickened. Trace mitral regurgitation. Aortic Valve The aortic valve is trileaflet and opens well. Tricuspid Valve Grossly normal tricuspid valve. Trace tricuspid regurgitation. Right ventricular systolic pressure estimated to be within the normal range. Pulmonic Valve Pulmonic valve not well visualized. Pericardium Echo free space anterior to the right ventricle likely represents a fat pad. Aorta Normal size aortic root. IVC RA pressure is 0-5 mmHg. CONCLUSIONS Normal left ventricular size. Normal left ventricular wall thickness. Normal left ventricular systolic function. Left ventricular ejection fraction is 60- 64%. There are no regional wall motion abnormalities noted. Impaired LV relaxation, normal LV filling pressures. Normal right ventricular size and systolic function. Right ventricular systolic pressure estimated to be within the normal range. No prior study for comparison. Jazmine Felder MD (Electronically Signed) Final Date: 16 February 2019 15:23 2D ECHO LV Diastolic Diameter PLAX 4.6 cm 4.2-5.8 (M) / 3.8-5.2 (F) LV Systolic Diameter PLAX 3 cm 2.5-4.0 (M) / 2.2-3.5 (F) LV Fractional Shortening PLAX 34.7 % IVS Diastolic Thickness 0.81 cm 0.6-1.0 (M) / 0.6-0.9 (F) LVPW Diastolic Thickness 0.72 cm 0.6-1.0 (M) / 0.6-0.9 (F) LV Relative Wall Thickness 0.33 <= 0.42 LVOT Diameter 2 cm Aortic Root Diameter 3.3 cm LA Volume 55 cm LA Volume Index 30 cm/m 16 - 34 cm/m LV Mass by linear method 111 g LV Mass by linear method Index 60.5 g/m DOPPLER AV Peak Velocity 164 cm/s AV Peak Gradient 10.8 mmHg AV Mean Velocity 110 cm/s AV Mean Gradient 5.5 mmHg AV Velocity Time Integral 37.3 cm LVOT Peak Velocity 119 cm/s LVOT Peak Gradient 5.7 mmHg LVOT Mean Velocity 72 cm/s LVOT Mean Gradient 2.4 mmHg LVOT Velocity Time Integral 24.9 cm LVOT Stroke Volume 77.2 cm LVOT Cardiac Output 4.7 liters/min AV Area Cont Eq vti 2.1 cm AV Area Cont Eq pk 2.2 cm Mitral E Point Velocity 83 cm/s Mitral A Point Velocity 114 cm/s Mitral E to A Ratio 0.73 TR Peak Velocity 229 cm/s TR Peak Gradient 21 mmHg LV E' Lateral Velocity 7.4 cm/s Mitral E to LV E' Lateral Ratio 11.2 LV E' Septal Velocity 7.4 cm/s Mitral E to LV E' Septal Ratio 11.2 Specimen Performing Organization Address [facility] one Number SMS * H. Pylori Stool Ag (11/24/2018 10:53 AM CDT) Pathologist [facility] H. pylori Stool Negative BT [facility] Ag, EIA Specimen Stool - Feces Narrative Performed At Performed at: 01 - [facility] [address] [place] [id number] Research Program Assistant: Mateus Pizano MD, Phone : [phone] Performing Organization Address [facility] one Number [facility] [address] [place] [address] * Folic Acid (11/23/2018 3:13 PM CDT) Pathologist [facility] Folic Acid 11.1 5.9 - 24.8 ng/mL [facility] Specimen Blood - Arm, left Performing Organization Address [facility] one Number [facility] [address] [place] [address] * Ferritin (11/23/2018 3:13 PM CDT) Pathologist [facility] Ferritin 50.1 11.0 - 306.8 ng/mL [facility] Specimen Blood - Arm, left Performing Organization Address [facility] one Number [facility] [address] [place] [address] * Vitamin B12 (11/23/2018 3:13 PM CDT) Pathologist [facility] Vitamin B12 247 See comment pg/mL [facility] Comment: LABORATORY Normal: 180-914 pg/mL Intermittent: 145-180 pg/mL Deficient: <=145.0 pg/mL Specimen Blood - Arm, left Performing Organization Address [facility] one Number [facility] [address] [place] [address] * Iron Profile (11/23/2018 3:13 PM CDT) Iron 52 50 - 212 ug/dL [facility] TIBC 334 250 - 450 ug/dL [facility] % Iron Sat 16 % [facility] Transferrin 238.54 203.00 - 362.00 [facility] mg/dL [facility] Specimen Blood - Arm, left Performing Organization Address [facility] one Number [facility] [address] [place] [address] * Hepatitis Panel (11/23/2018 3:13 PM CDT) Hepatitis C Negative Negative [facility] Virus (HCV) LABORATORY Antibody Hep B Surface Negative Negative [facility] Ag [facility]ORATORY Hep A Vir Ab Negative Negative [facility] IgM [facility] Hep B Core Ab Negative Negative [facility] IgM [facility] Specimen Blood - Arm, left Performing Organization Address [facility] one Number [facility] [address] [place] [address] * 12 LEAD EKG (11/13/2018 11:01 AM CDT) 12 LEAD EKG FOR [facility] Test Date: 2018-11-13 Pat Name: BERNICE STARR Department: Room: Gender: F Shale Processing Technician: [id number] : 1950 Requested By: NAOMI Jordan Order Number: [id number] Reading MD: damon mcmillan Measurements Intervals [place] Rate: 51 P: 59 OR: 157 QRS: 13 QRSD: 90 T: 11 QT: 402 QTc: 372 Interpretive Statements SINUS BRADYCARDIA NONSPECIFIC T-WAVE ABNORMALITY Reviewed by Electronically Signed On 11-13-2018 20:33:46 CDT by damon mcmillan Specimen Performing Organization Address [facility] one Number [facility] * PT/INR (11/13/2018 10:47 AM CDT) PT 13.0 11.8 - 15.0 Seconds [facility] INR 1.0 Refer to INR [facility] Comment: therapeutic ranges LABORATORY 2.0 - 3.0 for moderate intensity anticoagulation 2.5 - 3.5 for high intensity anticoagulation Specimen Blood Performing Organization Address City/[facility] Ph one Number [facility] [facility] [address] [place] [address] * CBC (without differential) (11/13/2018 10:47 AM CDT) WBC 4.6 4.5 - 11.0 K/uL [facility] RBC 4.22 4.20 - 5.40 M/uL [facility] Hemoglobin 12.6 12.0 - 16.0 g/dL [facility] Hematocrit 38.1 37.0 - 47.0 % [facility] MCV 90.3 82.0 - 92.0 fL [facility] MCH 29.9 27.0 - 32.0 pg [facility] MCHC 33.1 32.0 - 36.0 g/dL [facility] RDW 40.6 36.4 - 46.3 fL [facility] Platelet 88 (L)Comment: Platelet clumps 150 - 400 K/uL [facility] Mean Platelet 12.3 9.4 - 12.4 fL [facility] Percent NRBC 0.0 % [facility] Specimen Blood Performing Organization Address [facility] [place] Ph one Number [facility] [address] [place] [address] after 11/10/2018 Insurance Type Payer Benefit Subscriber ID Effective Phone Address Plan / Dates Group [facility] xxxxxxxxxxxx 2019- [address] [facility] [id number] [facility] [address] [id number] [facility] PLAN FIN[employer]CIAL xxxxxxx 2019-6 [phone] [address] [place] [address]
--- OUTSIDE RECORDS SUMMARY | 2019-11-11 22:32 | XMS REPORT | Summary of Care ---
Author Author [facility] Organization [facility] Address Unknown Phone Unavailable Encounter HQ [employer]tr_[email or web address](FIN) [phone] Date(s): 06/13/19 - 06/13/19 [facility] [address] [place] [address] [phone] Discharge Disposition: Home or Self Care Attending Physician: Dariel Menjivar MD Vital Signs No data available for this section Problem List No data available for this section Allergies, Adverse Reactions, Alerts No data available for this section Medications No data available for this section Results No data available for this section Immunizations No data available for this section Procedures No data available for this section Social History Social History Type Response Assessment and Plan No data available for this section
--- OUTSIDE RECORDS SUMMARY | 2019-11-11 22:32 | XMS REPORT | Clinical Summary ---
Author Author FRANCIS [facility] Address Unknown Phone Unavailable Care Team Providers Care Management Nurse Rn Name Role Phone Sharpless PCP Allergies No Known Allergies Medications End Date Status Medication Sig Dispensed Refills Start Date Active amLODIPine (NORVASC) 5 MG Take 5 mg by 0 tablet mouth daily. Active atorvastatin (LIPITOR) 10 Take 10 mg by 0 MG tablet mouth daily. Active metoprolol (LOPRESSOR) 50 Take 50 mg by 0 MG tablet mouth 2 (two) times daily. Active levothyroxine (SYNTHROID, Take 100 mcg 0 LEVOTHROID) 100 MCG by mouth tablet Every morning on an empty stomach. Active aspirin 81 MG chewable Take 81 mg by 0 tablet mouth daily. Active Problems Not on file Social History Date Tobacco Use Types Packs/Day Years Used Never Smoker Alcohol Use Drinks/Week oz/Week Comments No Sex Assigned at Date Recorded Not on file Industry Job Start Date Occupation Not on file Not on file Not on file Travel End Travel History Travel Start No recent travel history available. Last Filed Vital Signs Not on file Plan of Treatment Not on file Results Not on fileafter 11/10/2018
--- OUTSIDE RECORDS SUMMARY | 2019-11-11 22:33 | XMS REPORT | Continuity of Care Document ---
Author Author [facility] t Organization [facility] Address [address] [place] [address] Phone Unavailable Care Team Providers Care Boiler Installer Name Role Phone Sharpless PCP Cal JESUS MEROE Attphys Unavailable NAA DIOP Attphys Unavailable Gutierrez ResidentMD, Augusta Attphys Norris GREY, Rodríguez Mcdaniel Attphys Lydia Hauser Attphys Unavailable Jenniffer GREY, N Patrice Attphys Robbie ResidentMD, Vernon Attphys [phone] John GREY, Chauncey Johnston Attphys Jhon ResidentMD, A Anastacio Attphys Moni ResidentMD, Chauncey Castro Attphys [phone] Jignesh Solis RN Attphys Unavailable Zo GREY, Israel Villa Attphys Dariel Menjivar Attphys Eri GREY, Bobbi Salas Attphys Indu HUDSON, Gaviota Jara Attphys Unavailable Jes GREY, Mayte Pimentel Attphys Darlene GREY, Maeve Kramer Attphys [place] Fellow(), Maeve Rodriguez Attphys Kin GREY, Edwina Valero Attphys Obed GREY, Dali Attphys Austin Finn Attphys Unavailable Ger GREY, Alina Berger Attphys Hipolito GREY, Nikki Goldman Attphys JANEL MATTHEWS Attphys Unavailable Payers Payer Name Policy Type Policy Number Effective Date Expiration Date Gene wu [facility] [employer] [id number] 04-13 00:00:00 2078 00:00:00 [facility] [id number], [place] [address] xxxxxxxxxxxx 2019 00:00:00 2078 23:59:59 [facility] [employer]xxx [id number] [place] [address] xxxxxxx 2019 00:00:00 2019-04 23:59:59 [facility] Problems Condition Name Condition Details Condition Category Status Onset Date Resolution Date Last Treatment Date Treating Clinician Comments Source COLON SCREENING COLO N SCREENING Active 06/01/2019 [facility] Diagnosis Active 2019-06-01 00:00:00 2019-06-14 0 5:14:00 [facility] Epigastric abdominal pain Epigastric abdominal pain Disease Ac tive 2018-01-08 00:00:00 [facility] Acute superficial gastritis without hemorrhage Acute s uperficial gastritis without hemorrhage Disease Active 2018-01-08 00:00:00 [facility] Essential hypertension Essential hypertension Disease Active [facility] Hyperlipidemia Hyperlipidemia Disease Active [facility] Neck pain on left side Neck pain on left side Disease Active [facility] History of Past Illness Condition Name Condition Details Condition Category Status Onset Date Resolution Date Last Treatment Date Treating Clinician Comments Source Other chest pain Other chest pain Disease Resolved 2018-01-22 00 :00:00 2019-09-09 00:00:00 2019-09-09 08:51:33 Luis resendiz Medication refill Medication refill Disease Resolved 2018-01-22 00:00:00 2019-09-09 00:00:00 2019-09-09 08:51:30 Luis resendiz Nonintractable headache Nonintractable headache Disease Resolved 2019-09-09 00:00:00 2019-09-09 08:51:34 Holland Gabriellet israel Fever Fever Disease Resolved 2019-09-09 00:00:00 2019-09-09 08:5 1:25 [facility] Allergies, Adverse Reactions, Alerts Allergy Name Allergy Type Status Severity Reaction(s) Onset Date Inacti ve Date Treating Clinician Comments Source Pneumococcal 23-Elise Ps Vaccine Propensity to adverse reactions t o drug Active Moderate 2019-01-19 00:00:00 Had eryt christy at the site of the injection and a large urticaria at the anterior and medial bicep. [facility] Social History Social Habit Start Date Stop Date Quantity Comments Source Sex Assigned At [facility] Exposure to SARS-CoV-2 (event) Not sure [facility] Alcohol intake 2019-11-10 00:00:00 2019-11-10 00:00:00 Current non-drinker of alcohol (finding) [facility] History SDOH Food Worry 2018-01-25 00:00:00 2018-01-25 00:00:00 1 [facility] History [facility] Food Scarcity 2018-01-25 00:00:00 2018-01-25 00:00:00 1 [facility] Smoking Status Start Date Stop Date Source Never smoker [facility] Medications Ordered Medication Name Filled Medication Name Start Date Stop Da te Current Medication? Ordering Clinician Indication Dosage Frequency Signature (SIG) Comments Components Source aspirin (ASPIRIN) 81 mg chewable tablet 2019-11-10 14:08:39 Yes 81mg QD Chew and swallow 81 mg by mouth daily. [facility] LORazepam (ATIVAN) 0.5 mg tablet 2019-11-10 14:08:39 Yes .5mg Take 0.5 mg by mouth every 6 hours as needed for Anxiety (sleep) pt got RX from a private MD- no one in [facility] . [facility] cetirizine (ZYRTEC) 10 mg tablet 2019-11-10 00:00:00 Yes Shortness of breath 10mg QD Take 1 tablet by mouth daily. [facility] Comp Stocking,Knee,Regular,Med Misc 2019-11-10 00:00:00 Yes Localized swelling of right lower extremity by Misc.(Non-Drug; C ombo Route) route. [facility] mometasone (NASONEX) 50 mcg/actuation nasal spray 2019-11-10 00:00:00 Yes Shortness of breath 1{spray} QD 1 [place] by each nostril route daily. [facility] hydroCHLOROthiazide (HYDRODIURIL) 25 mg tablet 2019-09-09 00 :00:00 Yes Essential hypertension 25mg QD Take 1 tablet by mouth daily. [facility] polyethylene glycol (GOLYTELY) 236-22.74-6.74 -5.86 gram ora l solution 2019-07-13 00:00:00 Yes Abdominal pain, unspecified ab dominal location Add lukewarm drinking water to the fill yenny (4 liters) and shake. Drink as directed by your doctor.. [facility] ketoconazole (NIZORAL) 2 % topical cream 2019-07-08 00:00:00 Yes Intertrigo Apply a small amount to red areas under breast twice a day for one week.. [facility] levothyroxine (SYNTHROID) 75 mcg tablet 2019-07-04 00:00:00 Yes Acquired hypothyroidism 75ug QD Take 1 tablet by mouth daily. [facility] cloNIDine HCL (CATAPRES) 0.1 mg tablet 2019-07-04 00:00:00 Yes Benign essential HTN .1mg Q.5D Take 1 tablet by mouth 2 times daily. [facility] atorvastatin (LIPITOR) 20 mg tablet 2019-07-04 00:00:00 Yes Mixed hyperlipidemia 20mg Take 1 tablet by mouth at bedtime nightly. [facility] amLODIPine (NORVASC) 5 mg tablet 2019-07-04 00:00:00 Yes Benign essential HTN 5mg Take 1 tablet by mouth every morning. [facility] ondansetron (ZOFRAN) 4 mg tablet 2019-05-08 00:00:00 2019-04 23:59:00 No Epigastric abdominal pain 4mg Take 1 tablet by mouth every 8 hours as needed for up to 3 days for Nausea. [facility] ciprofloxacin HCl (CIPRO) 500 mg tablet 00:00:00 2019-05-16 23:59:00 No Enterocolitis 750mg Q.5D Take 1.5 ta blets by mouth 2 times daily for 10 days. [facility] metroNIDAZOLE (FLAGYL) 500 mg tablet 2019-05-06 00:00: 00 2019-05-16 23:59:00 No Enterocolitis 500mg Q.5D Take 1 tablet by mouth 2 times daily for 10 days. [facility] atorvastatin (LIPITOR) 20 mg tablet 2019-04-26 00:00:0 0 2019-07-04 00:00:00 No Mixed hyperlipidemia 20mg Take 1 tablet by mouth at b edtime nightly. [facility] cloNIDine HCL (CATAPRES) 0.1 mg tablet 2019-04-13 4 00:00:00 2019-07-04 00:00:00 No Benign essential HTN .1mg Q.5D Take 1 tablet by mo uth 2 times daily. [facility] amLODIPine (NORVASC) 5 mg tablet 2019-04-26 00:00:00 2019-06 00:00:00 No Benign essential HTN 5mg Take 1 tablet by mouth every morning. [facility] dexlansoprazole (DEXILANT) 30 mg delayed release capsule 2019-03-30 00:00:00 2019-09-09 00:00:00 No Gastroesophageal ref lux disease, esophagitis presence not specified 30mg QD Take 1 capsule by mouth daily. [facility] levothyroxine (SYNTHROID) 75 mcg tablet 00:00:00 2019-07-04 00:00:00 No Acquired hypothyroidism 75ug QD Take 1 tablet b y mouth daily. [facility] atorvastatin (LIPITOR) 10 mg tablet 2019-02-14 00:00:0 0 2019-04-26 00:00:00 No Mixed hyperlipidemia 10mg Take 1 tablet by mouth at b edtime nightly. [facility] cetirizine (ZYRTEC) 10 mg tablet 2019-01-19 00:00:00 2019-04 00:00:00 No Adverse effect of vaccine, initial encounter 10mg QD Take 1 tablet by mouth daily. [facility] famotidine (PEPCID) 20 mg tablet 2019-01-19 00:00:00 2019-04 00:00:00 No Gastroesophageal reflux disease, esophagitis presence not specified 20mg Take 1 tablet by mouth 2 times daily as needed for Heartburn. [facility] amLODIPine (NORVASC) 10 mg tablet 2019-01-19 00:00:00 2019 00:00:00 No Benign essential HTN 10mg Take 1 tablet by mouth every morning. [facility] famotidine (PEPCID) 20 mg tablet 2019-01-18 00:00:00 2019-01 00:00:00 No Gastroesophageal reflux disease, esophagitis presence not specified 20mg Take 1 tablet by mouth 2 times daily as needed for Heartburn. [facility] amLODIPine (NORVASC) 10 mg tablet 2019-01-18 00:00:00 2018 00:00:00 No Benign essential HTN 10mg Take 1 tablet by mouth every morning. [facility] famotidine (PEPCID) 40 mg tablet 2018-11-13 00:00:00 2018-12 23:59:00 No Epigastric abdominal pain 40mg QD Take 1 tablet by mouth daily for 30 days. [facility] fluticasone propionate (FLONASE ALLERGY RELIEF) 50 mcg/actua tion nasal spray 2018-07-06 00:00:00 2019-04-26 00:00:00 No Dysfunct ion of both eustachian tubes 2{spray} QD Use 2 Sprays in each nostril daily. [facility] levothyroxine (SYNTHROID) 75 mcg tablet 00:00:00 2019-02-11 00:00:00 No Acquired hypothyroidism 75ug QD Take 1 tablet b y mouth daily. [facility] atorvastatin (LIPITOR) 10 mg tablet 2018-05-04 00:00:0 0 2019-02-11 00:00:00 No Mixed hyperlipidemia 10mg Take 1 tablet by mouth at b edtime nightly. [facility] amLODIPine (NORVASC) 5 mg tablet 2018-05-04 00:00:00 2019-01 00:00:00 No Medication refill 5mg Take 1 tablet by mouth every morning. [facility] cloNIDine HCl (CATAPRES) 0.1 mg tablet 2018-04-14 2 00:00:00 2018-11-23 00:00:00 No Medication refill .1mg Q.5D Take 1 tablet by mouth 2 times daily. [facility] aspirin 81 MG chewable tablet 2016-06-11 06:52:06 Yes 81mg QD Take 81 mg by mouth daily. [facility] amLODIPine (NORVASC) 5 MG tablet 2016-06-11 06:51:56 Yes 5mg QD Take 5 mg by mouth daily. [facility] atorvastatin (LIPITOR) 10 MG tablet 2016-06-11 06:51:56 Yes 10mg QD Take 10 mg by mouth daily. [facility] metoprolol (LOPRESSOR) 50 MG tablet 2016-06-11 06:51:56 Yes 50mg Q.5D Take 50 mg by mouth 2 (two) times daily. [facility] levothyroxine (SYNTHROID, LEVOTHROID) 100 MCG tablet 2 06:51:56 Yes 100ug Take 100 mcg by mouth Every morning on a n empty stomach. [facility] Immunizations Ordered Immunization Name Filled Immunization Name Date Status Comments Source Influenza, Injectable, Quadrivalent, Preservative Free 2019-04-26 00:00:00 Completed [facility] Zoster Vaccine (Shingrix) 2019-04-26 00:00:00 Completed [facility] PNEUMOCOCCAL 23-VALPS VACCINE 25 MCG/0.5 ML INJECTION 2019-01-18 00:00:00 Completed [facility] Influenza, Vaccine<FLUCELVAX>(Multi-Dose) 2018-02-19 00:00 :00 Completed [facility] PCV 13 (Pnuemococcal Conjugated 13 Valent) 2015-12-31 00:0 0:00 Completed [facility] Tdap (Tetanus Toxoid, Reduced Diphtheria Toxoid And Acellular Pertussis, Absorbed) 2015-12-31 00:00:00 [facility] Varicella 2015-12-31 00:00:00 Completed [facility] PPD 2015-12-31 00:00:[address] [facility] Vital Signs Vital Name Observation Time Observation Value Comments Source Systolic blood pressure 2019-11-10 13:43:00 126 mm[Hg] [facility] Diastolic blood pressure 2019-11-10 13:43:00 63 mm[Hg] [facility] Heart rate 2019-11-10 13:43:00 63 /min [facility] Body temperature 2019-11-10 13:43:00 37 Tanja [facility] Respiratory rate 2019-11-10 13:43:00 18 /min [facility] Body height 2019-11-10 13:43:00 165.1 cm [facility] Body weight 2019-11-10 13:43:00 76.794 kg [facility] BMI 2019-11-10 13:43:00 28.17 kg/m2 [facility] Oxygen saturation in Arterial blood by Pulse oximetry 05-08 18:30:00 95 /min [facility] Procedures Procedure Date / Time Performed Performing Clinician Souredwina e [facility] EKG PROC 12 LEAD EKG; TRACING ONLY 2019-11-10 14:01:12 Shashi Michelle [facility] BASIC METABOLIC PANEL 2019-09-16 08:59:00 Anastacio Ferreira [facility] THYROID STIMULATING HORMONE (TSH) 2019-09-16 08:59:00 Devin Ferreira [facility] FREE T4 2019-09-16 08:59:00 Anastacio Ferreira [facility] FECAL OCCULT BLOOD 2019-05-12 11:23:00 Violeta Pisano [facility] EKG PROC 12 LEAD EKG; TRACING ONLY 2019-05-08 16:41:07 Tenisha Grande [facility] TROPONIN I POC 2019-05-08 16:38:00 Josue Hwang alth URINALYSIS 2019-05-08 14:23:00 Lyubov Cardoza [facility] lt URINALYSIS 2019-05-08 14:23:00 Lyubov Cardoza mayte lt BMP POC 2019-05-08 13:49:00 Unknown, Provider Luis mayte [facility] CBC/DIFF 2019-05-08 13:47:00 Lyubov Cardoza mayte [facility] LIVER PROFILE 2019-05-08 13:47:00 Lyubov Cardoza mayte lt LIPASE 2019-05-08 13:47:00 Lyubov Cardoza mayte lt CBC 2019-05-08 13:47:00 Lyubov Cardoza [facility] THYROID STIMULATING HORMONE (TSH) 2019-05-08 13:47:00 Marina Echeverria [facility] FREE T4 2019-05-08 13:47:00 [facility] AND PELVIS [facility]AST 2019-05-06 06:49:40 Jodi Saenz [facility] XRAY CHEST 2 VIEWS 2019-05-06 06:25:53 Tiffany Saenz [facility] URINALYSIS 2019-05-06 04:48:00 Tiffany Saenz [facility] URINALYSIS 2019-05-06 04:48:00 Tiffany Saenz [facility] INFLUENZA DNA/RNA AMP PROBE, FLURSV 2019-05-06 03:37:00 Rafal Nolen [facility] BMP POC 2019-05-05 21:06:00 Unknown, Provider Luis mayte lt CBC/DIFF 2019-05-05 20:59:00 [facility]olen [facility] 2019-05-05 20:59:00 Angel Nolen [facility] h BONE DENSITY (DEXA) 2019-05-04 13:43:55 Jennifer Guthrie [facility] HEMOCCULT KIT FOR SPECIMEN COLLECTION AT HOME 2019-04-26 15: 28:11 Jeninfer Guthrie [facility] GI PROC EGD DIAGNOSTIC BRUSH WASH 2019-04-18 14:50:00 Allen Whitten [facility] TRANSTHORACIC ECHO (TTE) 2019-02-16 14:05:00 Jennifer Guthrie [facility] H. PYLORI STOOL AG 2018-11-24 10:53:00 Jennifer Guthrie [facility] IRON PROFILE 2018-11-23 15:13:00 Jennifer Guthrie [facility] manoj FERRITIN 2018-11-23 15:13:00 Jennifer Guthrie [facility] manoj VITAMIN B12 2018-11-23 15:13:00 Jennifer Guthrie [facility] manoj FOLIC ACID 2018-11-23 15:13:00 Jennifer Guthrie [facility] manoj CBC/DIFF 2018-11-23 15:13:00 Jennifer Guthrie [facility] manoj HEPATITIS PANEL 2018-11-23 15:13:00 Jennifer Guthrie [facility] manoj THYROID STIMULATING HORMONE (TSH) 2018-11-23 15:13:00 Chauncey Guthrie [facility] FREE T4 2018-11-23 15:13:00 Jennifer Guthrie [facility] manoj CBC 2018-11-23 15:13:00 Jennifer Guthrie [facility] manoj 12 LEAD EKG 2018-11-13 11:01:48 Dark, Naomi Smith [facility] CBC (WITHOUT DIFFERENTIAL) 2018-11-13 10:47:00 Dark Naomi Wood [facility] [place] BASIC METABOLIC PANEL 2018-11-13 10:47:00 Dark, Naomi Jordan [facility] PT/INR 2018-11-13 10:47:00 Dark, Naomi Anthonyt h LIPASE 2018-11-13 10:47:00 Dark, Naomi [facility] h LIVER PROFILE 2018-11-13 10:47:00 Dark, Naomi Jordan [facility] Plan of Care Planned Activity Planned Date Details Comments Source Future Scheduled Test 2022-06-12 00:00:00 Screening for viola gnant neoplasm of colon (procedure) [code = 515786280] [facility] Scheduled Test 2020-01-12 00:00:00 IMM Influenza Seas onal Jan to June (>/= 19 yrs) [code = IMM Influenza Seasonal Jan to June (>/= 19 yrs)] [facility] Scheduled Test 2019-02-12 00:00:00 Breast Cancer Scrn (Yearly) [code = Breast Cancer Scrn (Yearly)] [facility] Encounters Start Date/Time End Date/Time Encounter Type Admission Type [facility] Facility Care Department Encounter ID Source 2019-12-08 00:00:00 2019-12-08 00:00:00 Outpatient SHASHI JESUS [facility] [id number] [facility] 2019-11-10 13:41:43 2019-11-10 15:28:18 Outpatient NAA DIOP [facility] [id number] [facility] 2019-10-12 07:12:21 2019-10-12 07:12:21 Outpatient [facility] [id number] [facility] 2019-10-11 00:00:00 2019-10-11 00:00:00 Outpatient [facility] [id number] [facility] 2019-09-16 08:56:23 2019-09-16 08:56:23 Outpatient [facility] [id number] [facility] 2019-09-16 06:49:57 2019-09-16 06:49:57 Outpatient [facility] [id number] [facility] 2019-09-16 00:00:00 2019-09-16 00:00:00 Outpatient [facility] [id number] [facility] 2019-09-16 00:00:00 2019-09-16 00:00:00 Outpatient [facility] [id number] [facility] 2019-09-13 00:00:00 2019-09-13 00:00:00 Outpatient [facility] [id number] [facility] 2019-09-12 00:00:00 2019-09-12 00:00:00 Outpatient [facility] [id number] [facility] 2019-09-09 08:22:53 2019-09-09 08:22:53 Outpatient [facility] [id number] [facility] 2019-09-06 00:00:00 2019-09-06 00:00:00 Outpatient [facility] [id number] [facility] 2019-09-01 00:00:00 2019-09-01 00:00:00 Outpatient [facility] [id number] [facility] 2019-08-29 00:00:00 2019-08-29 00:00:00 Outpatient [facility] [id number] [facility] 2019-08-02 00:00:00 2019-08-02 00:00:00 Outpatient [facility] [id number] [facility] 2019-07-19 00:00:00 2019-07-19 00:00:00 Outpatient [facility] [id number] [facility] 2019-07-19 00:00:00 2019-07-19 00:00:00 Outpatient [facility] [id number] [facility] 2019-06-28 00:00:00 2019-06-28 00:00:00 Outpatient [facility] [id number] [facility] 2019-06-21 00:00:00 2019-06-21 00:00:00 Outpatient [facility] [id number] [facility] 2019-06-13 06:57:00 2019-06-13 16:35:00 Outpatient Dariel Menjivar [facility] [id number] 2019-06-13 06:57:00 2019-06-13 06:57:00 Outpatient [facility] [id number] MH 2019-05-12 11:21:49 2019-05-12 11:21:49 Outpatient [facility] [id number] [facility] 2019-05-08 15:13:40 2019-05-08 15:13:40 Emergency [facility] [id number] [facility] 2019-05-06 06:18:19 2019-05-06 06:18:19 Emergency [facility] [id number] [facility] 2019-05-06 05:46:39 2019-05-06 05:46:39 Emergency [facility] [id number] [facility] 2019-05-06 02:23:28 2019-05-06 02:23:28 Emergency [facility] [id number] [facility] 2019-05-04 12:56:45 2019-05-04 12:56:45 Outpatient [facility] [id number] [facility] 2019-05-04 00:00:00 2019-05-04 00:00:00 Outpatient [facility] [id number] [facility] 2019-04-26 13:59:10 2019-04-26 13:59:10 Outpatient [facility] [id number] [facility] 2019-04-18 12:00:50 2019-04-18 12:00:50 Outpatient [facility] [id number] [facility] 2019-03-30 12:38:33 2019-03-30 12:38:33 Outpatient [facility] [id number] [facility] 2019-02-16 13:21:46 2019-02-16 13:21:46 Outpatient [facility] [id number] [facility] 2019-01-21 00:00:00 2019-01-21 00:00:00 Outpatient [facility] [id number] [facility] 2019-01-21 00:00:00 2019-01-21 00:00:00 Outpatient [facility] [id number] [facility] 2019-01-18 13:46:02 2019-01-18 13:46:02 Outpatient [facility] [id number] [facility] 2019-01-18 00:00:00 2019-01-18 00:00:00 Outpatient [facility] [id number] [facility] 2018-11-24 10:52:55 2018-11-24 10:52:55 Outpatient [facility] [id number] [facility] 2018-11-24 00:00:00 2018-11-24 00:00:00 Outpatient [facility] [id number] [facility] 2018-11-23 15:11:59 2018-11-23 15:11:59 Outpatient [facility] [id number] [facility] 2018-11-23 13:58:26 2018-11-23 13:58:26 Outpatient [facility] [id number] [facility] 2018-11-23 00:00:00 2018-11-23 00:00:00 Outpatient [facility] [id number] [facility] 2018-11-13 09:04:15 2018-11-13 09:04:15 Emergency [facility] [id number] [facility] 2018-07-06 13:46:41 2018-07-06 13:46:41 Outpatient [facility] [id number] [facility] 2018-07-01 00:00:00 2018-07-01 00:00:00 Outpatient [facility] [id number] [facility] 2018-05-31 13:53:22 2018-05-31 13:53:22 Outpatient [facility] [id number] [facility] 2018-05-19 07:45:24 2018-05-19 07:45:24 Emergency [facility] [id number] [facility] 2018-05-19 03:38:23 2018-05-19 03:38:23 Outpatient [facility] [id number] [facility] 2018-05-07 08:28:53 2018-05-07 08:28:53 Outpatient [facility] [id number] [facility] 2018-05-06 13:45:19 2018-05-06 13:45:19 Outpatient [facility] [id number] [facility] 2018-05-04 08:24:53 2018-05-04 08:24:53 Outpatient [facility] [id number] [facility] 2018-05-04 07:25:23 2018-05-04 07:25:23 Outpatient [facility] [id number] [facility] 2018-03-25 11:30:13 2018-03-25 11:30:13 Emergency [facility] [id number] [facility] 2018-03-25 09:25:34 2018-03-25 09:25:34 Emergency [facility] [id number] [facility] 2018-02-19 09:04:38 2018-02-19 09:04:38 Outpatient [facility] [id number] [facility] 2018-02-12 10:36:28 2018-02-12 10:36:28 Outpatient [facility] [id number] [facility] 2018-01-25 07:50:14 2018-01-25 07:50:14 Outpatient [facility] [id number] [facility] 2018-01-22 17:51:29 2018-01-22 17:51:29 Emergency [facility] [id number] [facility] 2018-01-22 09:34:53 2018-01-22 09:34:53 Emergency [facility] [id number] [facility] 2018-01-08 11:30:53 2018-01-08 11:30:53 Emergency [facility] [id number] [facility] 2018-01-08 09:21:52 2018-01-08 09:21:52 Emergency [facility] [id number] [facility] Results Test Description Test Time Test Comments Results Result Comments Source 12 LEAD EKG 2019-11-10 15:12:14 12 LEAD EKG FOR [facility] Test Date: [id number] Name: BERNICE STARR Department: SCMatient ID: [id number] Room: Gender: F Director Of Safety And Security: HuberMikael: 1950 Requested By: SHASHI JESUS BOrder Number: [id number] Reading MD: Morgan Butterfield MeasurementsIntervals [place] Rate: 62 P: 59PR: 152 QRS: -13QRSD: 82 T: -35QT: 408 QTc: 414 Interpretive StatementsNormal sinus rhythmST & T wave abnormality, consider anterolateral ischemiaElectronically Signed On 11-10-2019 15:12:09 CDT by Morgan De La Paz [email or web address] Fecal Occult Blood 2019-05-12 11:36:00 Test Item Occult Blood (test code = 17325-6) Positive Negative A Lab Interpretation (test code = 18966-8) Abnormal [facility]12 LEAD [id number] 17:07:0212 LEAD EKG FOR [facility] Test Date: [id number] Name: BERNICE STARR Department: 5520Patient ID: [id number] Room: Gender: F Director Of Safety And Security: [id number]: 1950 Requested By: [facility]: [id number] Reading MD: Romulo Sheikh M.D. MeasurementsIntervals [place] Rate: 63 P: 49PR: 158 QRS: -33QRSD: 85 T: 31QT: 407 QTc: 419 Interpretive StatementsSINUS RHYTHM WITH OCCASIONAL SUPRAVENTRICULAR PREMATURE COMPLEXESINDETERMINATE AXISPOSSIBLE RIGHT VENTRICULAR CONDUCTION DELAY [RSR (QR) IN V1/V2]MINIMAL VOLTAGE CRITERIA FOR LVH, CONSIDER NORMAL VARIANT [MEETS CRITERIA INONE OF: R(aVL), S(V1), R(V5), R(V5/V6)+S(V1)]POSSIBLE ANTERIOR MYOCARDIAL INFARCTION [30 ms Q WAVE IN V3/V4, OR R < 0.2 mVIN V4], PROBABLY OLDReviewed by Electronically Signed On 05-08-2019 17:06:58 CENTRAL OFFICE EQUIPMENT ENGINEER by Romulo Sheikh M.D.[facility] TROPONIN I POC docked [id number] 16:51:00* Test Item Value Reference Range Interpretation Comments Troponin POC (test code = 19233808) 0.00 ng/mL 0-0.08 017 Lab Interpretation (test code = 95410-4) [facility]tWpnqfzupxz1659-08-20 15:48:00* Test Item Value Reference Range Interpretation Comments Color (test code = 77283582) Yellow Colorless, Straw, Yellow Clarity (test code = 20646552) Clear Clear Spec [place], Ur (test code = 77035183) 1.024 1.001-1.035 pH, Ur (test code = 80484511) 6.0 5.0-8.0 Protein, Ur (test code = 23664724) Negative Negative mg/dL Glucose, Ur (test code = 84606521) Negative Negative mg/dL Ketone, Ur (test code = 20299871) Negative Negative mg/dL Bilirubin, Ur (test code = 66893958) Negative Negative mg/dL Nitrite, Ur (test code = 89567269) Negative Negative Leukocyte (test code = 20313081) trace Negative mg/dL A Blood, Ur (test code = 57015015) 1+ Negative mg/dL A RBC (test code = 81362660) 10 0- 4 /HPF H WBC (test code = 95958703) 1 0- 5 /HPF Epithelial Cell (test code = 13896763) 1 <=1 /HPF Mucous (test code = 09062717) Present None seen /HPF A Urobilinogen, Ur (test code = 81578763) <1.0 <1.0 EU/dL Lab Interpretation (test code = 76717-6) Abnormal [facility] HmcosdZltffn4840-52-99 14:54:00* Test Item Value Reference Range Interpretation Comments Lipase (test code = 12957895) 27 U/L 11-82 Lab Interpretation (test code = 29626-9) Normal [facility] HospitalLiver Yohvuih8265-54-94 14:54:00* Test Item Value Reference Range Interpretation Comments Bilirubin, Total (test code = 2885-2) 0.4 mg/dL 0.2-1.2 Alkaline Phosphatase (test code = 55276649) 50 U/L 34-104 AST (test code = 59188827) 17 U/L 13-39 Direct Bilirubin (test code = 1968-7) 0.1 mg/dL 0-0.2 ALT (test code = 70538548) 14 U/L 7-52 Albumin (test code = 54234-8) 4.1 g/dL 3.7-5.3 Lab Interpretation (test code = 56572-9) Normal [facility]/Aopn6769-33-87 14:22:00* Test Item Value Reference Range Interpretation Comments WBC (test code = 6690-2) 3.4 K/uL 4.5-11 L RBC (test code = 789-8) 4.59 4.20- 5.40 M/uL Hemoglobin (test code = 718-7) 13.3 g/dL 12-16 Hematocrit (test code = 4544-3) 40.5 % 37-47 MCV (test code = 787-2) 88.2 fL 82-92 MCH (test code = 785-6) 29.0 pg 27-32 MCHC (test code = 786-4) 32.8 g/dL 32-36 RDW (test code = 07321-8) 40.5 fL 36.4-46.3 Platelet (test code = 777-3) 126 K/uL 150-400 L Mean Platelet Volume (test code = 10432-9) 11.1 fL 9.4-12.4 Percent NRBC (test code = 49353840) 0.0 % Neutrophil (test code = 770-8) 68.7 % 34-70 Lymphs (test code = 736-9) 19.2 % 20-50 L Monocytes (test code = 5905-5) 10.0 % 5-12 Eos (test code = 713-8) 1.2 % 0.7-5 Basos (test code = 706-2) 0.6 % 0.1-1.2 Immature Granulocytes (test code = 08607631) 0.3 % 0-0.5 Neutrophils (Absolute) (test code = 61269269) 2.33 K/uL 1.56-6.1 3 Lymphs (Absolute) (test code = 65711057) 0.65 K/uL 1.18-3.74 L Monocytes(Absolute) (test code = 17885961) 0.34 K/uL 0.24-0.36 Eos (Absolute) (test code = 15474248) 0.04 K/uL 0.04-0.36 Baso (Absolute) (test code = 17920492) 0.02 K/uL 0.01-0.08 Immature Grans (Abs) (test code = 77585698) 0.01 K/uL 0-0.03 Absolute NRBC (test code = 44994277) 0.00 K/uL Lab Interpretation (test code = 64964-3) Abnormal [facility] BMP POC docked kudyjp0447-46-24 14:07:00* Test Item Value Reference Range Interpretation Comments Sodium POC (test code = 50796387) 142 mmol/L 136-145 Potassium POC (test code = 19536643) 3.6 mmol/L 3.5-5.1 Chloride POC (test code = 44844806) 106 mmol/L 98-107 TCO2 POC (test code = 76029032) 22 mmol/L 21-32 Urea Nitrogen POC (test code = 00574407) 10 mg/dL 7-18 Creatinine POC (test code = 21968202) 1.1 mg/dL 0.6-1.3 Glucose POC (test code = 71873386) 109 mg/dL 74-106 H Ionized Calcium POC (test code = 00084884) 1.17 mmol/L 1.15-1.29 GFR, Estimated (test code = 54310099) 51 >=90 mL/min/1.73 m2 L Hemoglobin POC (test code = 30456040) 14.6 g/dL 12-16 Physician Notified Hematocrit POC (test code = 41197527) 43.0 % 37-47 Lab Interpretation (test code = 15273-8) Abnormal [facility] ABDOMEN AND PELVIS NVTIGSQT4176-84-04 08:36:54IMPRESSION: 1. Findings compatible with enterocolitis. Liquid stool in the colon asseen with diarrhea.2. Mild cardiomegaly and calcific aortic valve disease.3. Hepatomegaly with diffuse steatosis. No focal hepatic lesion. If the report is "FINALIZED" it indicates that the attending/staffradiologist has reviewed the images and agrees with the resident'sinterpretation. Dictated By: Jose Martin Kemp MD, 05/06/2019 8:26 AM I have reviewed the study and agree with the findings in this report. Signed By: Jose M Johnson DO, 05/06/2019 8:36 AM Interface, Rad/Mamm og In - 05/06/2019 8:41 AM CSTEXAM: CT Abdomen and Pelvis WITH contrast INDICA TION: Abd pain, acute, generalized, with fever ADDITIONAL INFORMATION PER EPIC: 68 yro woman with HTN, GERD, HLD,comes in for one day of fevers and PIRES. she th en begun to have fever andmeasured her temperature, it was 101. She also complai ns of stomachpain, epigastrium and lower quadrants.COMPARISON: Abdominal CT 12/31TECHNIQUE: Abdomen and pelvis were scanned utilizing a multidetectorhelical scanner from the lung base to the pubic symphysis afteradministration of IV con trast. Coronal and sagittal reformations wereobtained. Routine protocol was perf ormed. Scan was performed when duringportal venous phase. IV CONTRAST: 1 00 mL of Omnipaque 300 ORAL CONTRAST: None COMPLICATIONS: NoneRAD IATION DOSE: Total DLP: 692 mGy*cm Estimated effective dose: (DLP x 0.01 5 x size factor) mSv CTDIvol has been reviewed. It is below the limits set b y theRadiation Protocol Committee (RPC).FINDINGS:Suboptimal exam due to patient motion artifact. LINES and TUBES: None.LOWER THORAX: There is bibasilar atelect asis. Myocardium.Calcifications of the aortic valve.HEPATOBILIARY: Enlarged live r that measures up to 18 cm. A 6 mmhypodensity within hepatic segment is unc hanged from prior exam andis too small to characterize (series 2/) but statist ically most likelyrepresent a simple cyst. The small hypodensity seen in hepatic segmentIII on prior exam, is not well visualized on this exam. No biliaryductal dilation. GALLBLADDER: No radio-opaque stones or sludge. No wall thickening. S PLEEN: No splenomegaly. PANCREAS: No focal masses or ductal dilatation. ADRENAL S: No adrenal nodules KIDNEYS/URETERS: Kidneys enhance symmetrically. No hyd ronephrosis.Stable 1.6 cm right renal superior pole exophytic simple cyst Nosto derian.GI TRACT: Mild mural hyperenhancement of multiple small bowel loops,best see n on coronal image 30. Numerous fluid-filled loops of nondilatedsmall bowel. Liq uid stool throughout the colon. No focal wallthickening or findings to suggest bowel obstruction. Appendix isnormal.PELVIC ORGANS/BLADDER: Unremarkable bladde r and uterus. LYMPH NODES: No lymphadenopathy.VESSELS: There is mild atheroscler otic disease in the aorta and majorarterial branches.PERITONEUM / RETROPERITONEU M: Small amount of free fluid within theabdomen/pelvis. No free air.BONES: Mild multilevel degenerative disc changes throughout the thoracicand lumbar spine. SO FT TISSUES: Stable 2.1 cm round left T11 paraspinal density is likelya benign ne rve sheath tumor or perineural cyst.IMPRESSIONIMPRESSION: 1. Findings compatibl e with enterocolitis. Liquid stool in the colon asseen with diarrhea.2. Mild ca rdiomegaly and calcific aortic valve disease.3. Hepatomegaly with diffuse steat osis. No focal hepatic lesion.If the report is "FINALIZED" it indicates that the attending/staffradiologist has reviewed the images and agrees with the resident 'sinterpretation.Dictated By: Jose Martin Kemp MD, 05/06/2019 8:26 AMI have reviewed the study and agree with the findings in this report.Signed By: Jose M Johnson DO, 05/06/2019 8:36 [facility] [id number] 08:03:21 IMPRESSION: Bibasilar atelectasis. If the report is "FINALIZED" it indicates t hat the attending/staffradiologist has reviewed the images and agrees with the r esident'sinterpretation. Dictated By: Wilder Larose MD, 05/06/2019 6:35 AM I have re viewed the study and agree with the findings in this report. Signed By: Jose M schwab DO, 05/06/2019 8:03 AM Interface, Rad/Mammog In - 05/06/2019 8:08 AM CSTE XAMINATION: XRAY CHEST 2 VIEWS INDICATION: fever, weakness COMPARISON: Abdo mike CT 05/06/2019 FINDINGS: TUBES and LINES: None.LUNGS: Bibasilar atel ectasis. Normal lung volumes.PLEURA: No pleural effusion or pneumothorax.HEAR T AND MEDIASTINUM: The cardiomediastinal silhouette isunremarkable. BONES AN D SOFT TISSUES: No acute osseous lesion. Soft tissues areunremarkable.UPPER AB DOMEN: No free air under the diaphragm. IMPRESSIONIMPRESSION: Bibasilar atele ctasis.If the report is "FINALIZED" it indicates that the attending/staffradiolo gist has reviewed the images and agrees with the resident'sinterpretation.Dictat ed By: Wilder Larose MD, 05/06/2019 6:35 AMI have reviewed the study and agree with the findings in this report.Signed By: Jose M Johnson DO, 05/06/2019 8:03 AM [facility] HealthInfluenza A/B and RSV [id number] 07:51:00* Test Item Value Reference Range Interpretation Comments Influenza A (test code = 77264-6) Not detected Not detected Influenza B (test code = 83566-0) Not detected Not detected RSV (test code = 09911-7) Not detected Not detected CARRINGTON (test code = CARRINGTON) This test utilizes FDA clear ed Jan jacqueline Influenza A/B & RSV real-time RT-PCR assay for qualitative detection and discrimination of Influenza A virus, Influenza B virus and Respiratory Syncytial virus (RSV). Additional testing is required to differentiate any specific Influenza A subtypes or strains or specific RSV subgroups. Lab Interpretation (test code = 38513-2) Normal [facility] DENSITY (DEXA)2019-05-04 14:49:53IMPRESSION: Bone mineralization by WHO Classification is osteopenia, the fracturerisk is increased. Dictated By: Pro Junior MD, 05/04/2019 2:27 PM I have reviewed the study and agree with the findings in this report. Signed By: Andrew Fan MD, 05/04/2019 2:49 PM Interface, Rad/Mammog In - 05/04/2019 2:54 PM CSTEXAM: BONE DENSITY (DEXA)History: age > 65, Thursday appointment preferenceComparison: None availableDISCUSSION:Evaluation of the left hip and lumbar spine was performed utilizing DEXAHologic bone densitometer. The study is technically adequate.The patient's fracture risk is compared to an age-matched control.The patient denies prior surgery/fracture of the spine, hips or forearm.Left hip femoral neck bone mineral density: 0.885 g/cm2, T-score is 0.3,Z-score is 2.1. Left hip total bone mineral density: 1.038 g/cm2, T-score is 0.8,Z-score is 2.3. Lumbar spine total bone mineral density: 0.887 gm/cm2, T-score is -1.5,Z-score is 0.7. The 10-year risk of major osteoporotic fracture is 6.8% and hip fractureis 0.3% per FRAX risk assessment.IMPRESSIONIMPRESSION:Bone mineralization by WHO Classification is osteopenia, the fracturerisk is increased.Dictated By: Pro Junior MD, 05/04/2019 2:27 PMI have reviewed the study and agree with the findings in this report.Signed By: Andrew Fan MD, 05/04/2019 2:49 PMOcean Beach HospitalNocxxjBPY3443-89-21 14:50:00TEXTPatient Name BERNICE STRAR Date of 1950Record Number [id number]/Time of Procedure 04/18/2019, 2:50:00 PMEndoscopist Marylu Bird MD./Fellow [place] INDICATIONS FOR EXAMINATION: Dyspepsia. PROCEDURE PERFORMED: EGD - EGD, diagnosticEGD - MODERATE SEDATION SAME PHYS/QHP 5/>YRS INSTRUMENTS: [id number]: None TOLERANCE: Good VISUALIZATION: Good MEDICATIONS: Fentanyl 75 mcg IVP, Versed 3 mg IVPASA CLASSIFICATION: IIANALGESIA: Moderate Sedation PROCEDURE TECHNIQUE:Prior to the procedure, a H istory and Physical was performed, and patient medications and allergies were re viewed. The risks and benefits of the procedure and the sedation options and ri sks were discussed with the patient. Consent was obtained. Pulse, blood oxygen saturation, and blood pressure were monitored throughout the procedure. After adequate sedation, the endoscope was introduced through the mouth and under dire ct visualization advanced to the second portion of duodenum. Careful examination of the esophagus, stomach and duodenum was performed. FINDINGS:The upper, middl e, and lower esophagus appeared normal.The GE junction was normal.The gastric ca rdia, fundus, body, and antrum were normal.The pylorus, duodenal bulb, and desce nding duodenum through the second portion of the duodenum appeared normal. SPECI MEN COLLECTED: No ENDOSCOPIC DIAGNOSIS:Normal EGD exam. RECOMMENDATIONS:Follo w-up with PCP and in GI clinic.Continue daily PPI to complete 8-10 week course, then consider tapering off if no change in symptoms and consider treatment of fu nctional component of dyspepsia. COMPLICATIONS:None. None ESTIMATED BLOOD LOSS: None BLOOD PRODUCTS ADMINISTERED: NoneGRAFT/IMPLANT: None TOTAL PROCEDURE TI ME: TOTAL SEDATION TIME: COMMENTS: CPT CODE:48948-[id number] Esophagogastroduoden oscopy, flexible, transoral; diagnostic, including collection of specimen(s) by brushing or washing, when [id number]-AM MODERATE SEDATION SAME PHYS/QHP 5/> YRSICD CODE:K30 Functional dyspepsia I was present during the entire viewing po rtion of the procedure. I personally reviewed the images and report prepared b y the resident or fellow and agree with the findings. After the procedure was c ompleted, the patient was taken to the recovery in good condition. This Procedur e was electronically signed of on :04/20/2019 2:41:40 PM By Marylu [facility] HospitalTRAN[facility] (TTE)2019-02-16 15:24:00TRANSTHORACIC ECHO (TTE) Transthoracic Echo Report BERNICE STARR Age: 68 Gender: F : 1950 Exam Date: 02/16/2019 14:05 Exam Location: [facility] Echo Ordering Phys: NEVA LOPEZ Referring Phys: PATRICE RENTERIA Reading Phys: Jazmine Felder MD Fellow Phys: Fellow Phys: Director Specialty: Aaron Finn Reason For Exam: Indications: Bradycardia, Cardiac dysrhythmias ICD-9 Codes: I47.1 Exam Type: TRANSTHORACIC ECHO (TTE) Procedure CPT: 09893 Addtional CPT: Ht (in): 65 BSA: 1.83 [...] Volume 55 cm LA Volume Index 30 cm/m2 16 - 34 cm/m2 LV Mass by linear method 111 g LV Mass by linear method Index 60.5 g/m2 DOPPLER AV Peak Velocity 164 cm/s AV [...] liters/min AV Area Cont Eq vti 2.1 cm2 AV Area Cont Eq pk 2.2 cm2 Mitral E Point Velocity 83 cm/s Mitral [...] for comparison. Jazmine Felder MD (Electronically Signed) Fi nal Date: 16 February 2019 15:23 2D ECHO LV Diastolic Diameter PLAX 4.6 cm 4.2-5.8 (M) / 3.8-5.2 (F) LV Systol ic Diameter PLAX 3 cm 2.5-4.0 (M) / 2.2-3.5 (F) LV Fra ctional Shortening PLAX 34.7 % IVS Diastolic Thickness 0.81 cm 0.6-1.0 (M) / 0.6-0.9 (F) LVPW Diastolic Thickness 0.72 cm 0.6-1.0 (M) / 0.6-0.9 (F) LV Relative Wall Thick ness 0.33 <= 0.42 LVOT Diameter 2 cm Aortic Root Diameter 3.3 cm LA Volume 55 cm LA Volume Index 30 cm/m2 16 - 34 cm/m2 LV Mass by linear method 111 g LV Mass by linear method Index 60.5 g/m2 DOPPLER AV Peak Velocity 164 cm/s AV [...] liters/min AV Area Cont Eq vti 2.1 cm2 AV Area Cont Eq pk 2.2 cm2 Mitral E Point Velocity 83 cm/s Mitral A Point Velocity 114 cm/s Mitral E to A Ratio 0.73 TR Peak Velocity 229 cm/s TR Peak Gradient 21 mmHg LV E' Lateral Velocity 7.4 cm/s Mitral E to LV E' Lateral Ratio 11.2 LV E' Septal Velocity 7.4 cm/s Mitral E to LV E' Septal Ratio 11.2 [place] [address] LEAD [id number] 20:33:4912 LEAD EKG FOR [facility] Test Date: 5706-40-59Mkd Name: BERNICE STARR Department: Room: Gender: F Director Of Safety And Security: [id number]: 1950 Requested By: NAOMI Dickerson Number: [id number] Reading MD: damon mcmillan MeasurementsIntervals [place] Rate: 51 P: 59PR: 157 QRS: 13QRSD: 90 T: 11QT: 402 QTc: 372 Interpretive StatementsSINUS BRADYCARDIANONSPECIFIC T-WAVE ABNORMALITYReviewed by Electronically Signed On 11-13-2018 20:33:46 CDT by [facility] (without differential)2018-11-13 12:50:00* Test Item Value Reference Range Interpretation Comments WBC (test code = 6690-2) 4.6 K/uL 4.5-11 RBC (test code = 789-8) 4.22 4.20- 5.40 M/uL Hemoglobin (test code = 718-7) 12.6 g/dL 12-16 Hematocrit (test code = 4544-3) 38.1 % 37-47 MCV (test code = 787-2) 90.3 fL 82-92 MCH (test code = 785-6) 29.9 pg 27-32 MCHC (test code = 786-4) 33.1 g/dL 32-36 RDW (test code = 54975-7) 40.6 fL 36.4-46.3 Platelet (test code = 777-3) 88 K/uL 150-400 L Platelet clumps present Mean Platelet Volume (test code = 50187-5) 12.3 fL 9.4-12.4 Percent NRBC (test code = 94091576) 0.0 % Lab Interpretation (test code = 82250-6) Abnormal [facility]/JBH2813-20-24 11:31:00* Test Item Value Reference Range Interpretation Comments PT (test code = 5902-2) 13.0 11.8- 15.0 Seconds INR (test code = 74671902) 1.0 Refer to INR therapeutic ra nges 2.0 - 3.0 for moderate intensity anticoagulation2.5 - 3.5 for high intensity anticoagulation Lab Interpretation (test code = 06350-4) Normal [facility] HospitalT4, [id number] 14:28:00* Test Item Value Reference Range Interpretation Comments FREE T4 (BEAKER) (test code = 655) 1.11 ng/dL 0.70-1.48 TSH/FREE T4 IF [id number] 13:03:00* Test Item Value Reference Range Interpretation Comments THYROID STIMULATING HORMONE (BEAKER) (test code = 772) 4.95 uIU/mL 0.35-4.94 H RAPID [id number] 07:36:00* Test Item Value Reference Range Interpretation Comments RAPID CKMB (BEAKER) (test code = 1482) < ng/mL 0.0-4.3 RAPID TROPONIN [id number] 07:36:00* Test Item Value Reference Range Interpretation Comments RAPID TROPONIN I (BEAKER) (test code = 1483) < ng/mL <0.05 COMPREHENSIVE METABOLIC [id number] 07:32:00* Test Item Value Reference Range Interpretation Comments TOTAL PROTEIN (BEAKER) (test code = 770) 6.9 gm/dL 6.0-8.5 ALBUMIN (BEAKER) (test code = 1145) 3.9 g/dL 3.5-5.0 ALKALINE PHOSPHATASE (BEAKER) (test code = 346) 61 U/L 30-115 BILIRUBIN TOTAL (BEAKER) (test code = 377) 0.6 mg/dL 0.1-1.2 SODIUM (BEAKER) (test code = 381) 143 meq/L 135-148 POTASSIUM (BEAKER) (test code = 379) 3.6 meq/L 3.6-5.5 CHLORIDE (BEAKER) (test code = 382) 108 meq/L 98-106 H CO2 (BEAKER) (test code = 355) 25 meq/L 24-32 BLOOD UREA NITROGEN (BEAKER) (test code = 354) 17 mg/dL 10-26 CREATININE (BEAKER) (test code = 358) 0.79 mg/dL 0.50-1.20 GLUCOSE RANDOM (BEAKER) (test code = 652) 146 mg/dL 70-110 H CALCIUM (BEAKER) (test code = 697) 8.7 mg/dL 8.5-10.5 AST (SGOT) (BEAKER) (test code = 353) 23 U/L 5-40 ALT (SGPT) (BEAKER) (test code = 347) 21 U/L 5-50 EGFR (BEAKER) (test code = 1092) 73 mL/min/1.73 sq m ESTIMATED GFR IS NOT ACCURATE CREATININE CLEARANCE IN PREDICTING GLOMERULAR FILTRATION RATE. ESTIMATED GFR IS NOT APPLICABLE FOR DIALYSIS PATIENTS. [id number] 07:32:00* Test Item Value Reference Range Interpretation Comments LIPASE (BEAKER) (test code = 749) 124 U/L 40-240 CBC W/PLT COUNT & AUTO [id number] 07:26:00* Test Item Value Reference Range Interpretation Comments WHITE BLOOD CELL COUNT (BEAKER) (test code = 775) 5.4 10e3/ L 4.0- 10.0 RED BLOOD CELL COUNT (BEAKER) (test code = 761) 4.43 10e6/ L 4.00-5 .00 HEMOGLOBIN (BEAKER) (test code = 410) 13.1 g/dL 12.0-15.0 HEMATOCRIT (BEAKER) (test code = 411) 38.8 % 36.0-45.0 MEAN CORPUSCULAR VOLUME (BEAKER) (test code = 753) 87.6 fL 82. 0-99.0 MEAN CORPUSCULAR HEMOGLOBIN (BEAKER) (test code = 751) 29.5 pg 27.0-33.0 MEAN CORPUSCULAR HEMOGLOBIN CONC (BEAKER) (test code = 752) 33.7 g/dL 32.0-36.0 RED CELL DISTRIBUTION WIDTH (BEAKER) (test code = 412) 11.5 % 10.3-14.2 PLATELET COUNT (BEAKER) (test code = 756) 140 10e3/ L 150-430 L MEAN PLATELET VOLUME (BEAKER) (test code = 754) 8.1 fL 6.5-10 .5 NEUTROPHILS RELATIVE PERCENT (BEAKER) (test code = 429) 66 % LYMPHOCYTES RELATIVE PERCENT (BEAKER) (test code = 430) 25 % MONOCYTES RELATIVE PERCENT (BEAKER) (test code = 431) 6 % EOSINOPHILS RELATIVE PERCENT (BEAKER) (test code = 432) 3 % BASOPHILS RELATIVE PERCENT (BEAKER) (test code = 437) 1 % NEUTROPHILS ABSOLUTE COUNT (BEAKER) (test code = 670) 3.57 10e3/ L 1.80-8.00 LYMPHOCYTES ABSOLUTE COUNT (BEAKER) (test code = 414) 1.34 10e3/ L 1.48-4.50 L MONOCYTES ABSOLUTE COUNT (BEAKER) (test code = 415) 0.30 10e3/ L 0. 00-1.30 EOSINOPHILS ABSOLUTE COUNT (BEAKER) (test code = 416) 0.16 10e3/ L 0.00-0.50 BASOPHILS ABSOLUTE COUNT (BEAKER) (test code = 417) 0.03 10e3/ L 0. 00-0.20
--- NOTE | 2019-11-11 22:42 | Diagnostic Imaging Report ---
EXAMINATION: CXR 2 VIEW INDICATION: SOB COMPARISON: None FINDINGS: TUBES and LINES: None. LUNGS: Normal lung volumes. Lungs are clear. No consolidations. PLEURA: No pleural effusion or pneumothorax. HEART AND MEDIASTINUM: The cardiomediastinal silhouette is unremarkable. BONES AND SOFT TISSUES: No acute osseous lesion. Soft tissues are unremarkable. UPPER ABDOMEN: No free air under the diaphragm. IMPRESSION: No acute thoracic radiographic abnormality. Signed by: Jignesh Rivera MD on 11/11/2019 10:38 PM
[2019-11-12 00:27] LABS: BASOPHILS # (AUTO) 0.1 (0.0-0.1); EOSINOPHILS # (AUTO) 0.1 (0.0-0.4); EOSINOPHILS % 2.4 % (0.0-6.0); HEMATOCRIT 36.2 % (34.2-44.1); HEMOGLOBIN 12.1 g/dL (12.0-16.0); LYMPHOCYTES # (AUTO) 1.7 (1.0-3.2); MEAN CORPUSCULAR HEMOGLOBIN 28.7 pg (28-32); MEAN CORPUSCULAR HGB CONC 33.4 g/dL (31-35); MONOCYTES # (AUTO) 0.5 (0.2-0.8); MONOCYTES % 10.1 % (4.4-11.3); NEUTROPHILS # (AUTO) 2.6 (2.1-6.9); NEUTROPHILS % 52.3 % (38.7-80.0); PLATELET COUNT 174 x10e3/uL (140-360); RED BLOOD COUNT 4.21 x10e6/uL (3.6-5.1); RED CELL DISTRIBUTION WIDTH 12.9 % (11.7-14.4)
[2019-11-12 01:10] VITALS: BP 134/62
--- NOTE | 2019-11-12 02:13 | Emergency Department Note ---
History of Present Illnes History of Present Illness Chief Complaint: Respiratory History of Present Illness This is a 69 year old female with mild dyspnea or 10 days. Has not happened bef ore. Not exertional. Occurs when speaking. No PND, no orthopnea. No chest pain, no diaphoresis, no nausea vomiting. Does not smoke or has ever smoked. Has a history of coronary disease in the family. Occasionally has bilateral lower extremity swelling of her ankles but this is long-standing. Been no recent travel or immobilization or surgeries. She had an EKG and her primary care [facility] office on Thursday and was told it was abnormal & the office is in the process of setting her up for an outpatient stress test. Called Dr. Duenas today who is a family friend who told her to come to the emergency room. Historian: Patient Arrival Mode: Car Manager Hospital Required: Yes Onset (how long ago): day(s) (10) Duration (how long): hour(s) (10) Timing of current episode: intermittent Progression: unchanged Chronicity: new Context: Reports new medications (started hydrochlorothiazide one month ago); Denies recent illness, Denies recent immobilization, Denies recent travel, Denies trauma/injury Relieving factors: other (not talking) Exacerbating factors: other (talking) Associated symptoms: Reports shortness of breath; Denies chest pain, Denies cough, Denies diaphoresis, Denies fever/chills, Denies headaches, Denies loss of appetite, Denies malaise, Denies nausea/vo miting, Denies rash, Denies syncope, Denies weakness Past Medical/Family History Physician Review I have reviewed the patient's past medical and family history. Any updates have been documented here. Past Medical History Recent Fever: No Clinical Suspicion of Infectio: No New/Unexplained Change in Ment: No Past Medical History: Hypertension, Hypothyroidism Other Medical History: HIGH CHOL. Other Surgery: HEMORROIDS Social History Smoking Cessation: Never Smoker Alcohol Use: None Any Illegal Drug Use: No Physically hurt or threatened: No Other Any Pre-Existing Lines (PICC,: No Review of Systems Review of Systems Constitutional: Reports no symptoms Cardiovascular: Reports no symptoms Gastrointestinal: Reports no symptoms Genitourinary: Reports no symptoms Musculoskeletal: Reports no symptoms Integumentary: Reports no symptoms Neurological: Reports no symptoms Psychological: Reports no symptoms; Denies as per HPI, Denies anxiety, Denies depressed, Denies emotional problems, Denies other Hematological/Lymphatic: Reports no symptoms Review of other systems: All other systems negative Physical Exam Related Data Triage Vital Signs Vital Signs Date Time Temp Pulse Resp B/P (MAP) Pulse Ox O2 Delivery O2 Flow Rate FiO2 11/11/19 21:09 98.6 61 18 143/74 96 Room Air Physical Exam CONSTITUTIONAL Constitutional: Present well-developed, Present well-nourished HENT HENT: Present normocephalic, Present atraumatic, Present oropharynx clear/moist, Present nose normal HENT L/R: Present left ext ear normal, Present right ext ear normal EYES Eyes: Reports PERRL, Reports conjunctivae normal NECK Neck: Present ROM normal, Present supple PULMONARY Pulmonary: Present effort normal, Present breath sounds normal CARDIOVASCULAR Cardiovascular: Present regular rhythm, Present heart sounds normal, Present capillary refill normal, Present normal rate GASTROINTESTINAL Abdominal: Present soft, Present nontender, Present bowel sounds normal GENITOURINARY SKIN Skin: Present warm, Present dry MUSCULOSKELETAL Musculoskeletal: Present ROM normal NEUROLOGICAL Neurological: Present alert PSYCHOLOGICAL Psychological: Present mood/affect normal Results Laboratory Laboratory comments K 3.0, otherwise CMP neg. Troponin negative. D-Dimer negative. BNP 29.8, WBC 5, He 12.1, HCT 36.2, PLT 174. Imaging Imaging results reviewed: Yes Impressions NAD Imaging Comments EXAMINATION: CXR 2 VIEW INDICATION: SOB COMPARISON: None FINDINGS: TUBES and LINES: None. LUNGS: Normal lung volumes. Lungs are clear. No consolidations. PLEURA: No pleural effusion or pneumothorax. HEART AND MEDIASTINUM: The cardiomediastinal silhouette is unremarkable. BONES AND SOFT TISSUES: No acute osseous lesion. Soft tissues are unremarkable. UPPER ABDOMEN: No free air under the diaphragm. IMPRESSION: No acute thoracic radiographic abnormality. Signed by: Jignesh Rivera MD on 11/11/2019 10:38 PM Procedures 12 Lead ECG Interpretation ECG Interpretation : ECG: ECG 1 Date: Nov 11, 2019 Time: 21:22 Prior ECG tracings: reviewed Rhythm: sinus rhythm Rate: normal BPM: 58 QRS axis: normal ST segments normal: No (anterior ST and T-wave abnormality) T waves normal: No Clinical Impression: abnormal ECG Assessment & Plan Medical Decision Making MDM Differential diagnosis includes the following, but is not limited to: ACS, pneumonia, pneumothorax, COVID, Bronchitis, PE, CHF, COPD. Reassessment Reassessment time: 22:51 Reassessment Recommended admission for the patient for an chest pain workup, however the patient and daughter declined. Patient and daughter are aware of risks which include and long-term disability. The patient's daughter has been translating for the patient states that the patient has not been short of breath, she misunderstood what she was saying. The daughter states that this only happens when patient is talking and she has to take a deep breath and sigh when talking. Patient states that she is asymptomatic now. Reviewed the results with the patient and daughter. Single troponin is negative as well as d-dimer and BNP. The patient is on hydrochlorothiazide and has a potassium of 3.0 was started on high potassium diet and to follow up with primary care doctor Assessment & Plan Final Impression: (1) Dyspnea (2) Hypokalemia Depart Disposition: HOME, SELF-CARE Last Vital Signs Date Time Temp Pulse Resp B/P (MAP) Pulse Ox O2 Delivery O2 Flow Rate FiO2 11/11/19 21:09 98.6 61 18 143/74 96 Room Air Medications in the ED Aspirin 325 mg ONCE ONCE PO ; Start 11/11/19 at 21:30; Stop 11/11/19 at 21:31; Status UNV MUKESH RICKS MD Nov 11, 2019 22:49
== END 2019-11-12 01:08 | disposition home or self-care (01) ==
LOC: FSED 21:18
DX: R06.00 Dyspnea, unspecified (principal); E87.6 Hypokalemia; I10 Essential (primary) hypertension; E03.9 Hypothyroidism, unspecified; E78.00 Pure hypercholesterolemia, unspecified
CPT/HCPCS: 36415; 71046; 80053; 83880; 84484; 85025; 85379; 93005; 99284